=== PATIENT | female | born 1970 | race Caucasian/White ===

== ENCOUNTER 2020-10-22 20:28 | Emergency (ER) | payer OTHER, SELFPAY ==
--- NOTE | ~2020-10-22 | XR_ITS ---
EXAMINATION: XR chest 1V INDICATION: Shortness of breath and cough TECHNIQUE: PA view of the chest is obtained. COMPARISON: None available FINDINGS: The lungs are free of acute opacities. There is no pleural effusion or pneumothorax. The ca rdiomediastinal silhouette is normal. The visualized bones and soft tissues are unremarkable. IMPRESSION: 1. No acute cardiopulmonary abnormality. Reviewed, dictated and finalized at location A. [employer]ARY
[2020-10-22 21:09] VITALS: BP 128/72; PULSE 98; RESP 16; TEMP 36.2; O2SAT 97
--- NOTE | 2020-10-22 21:11 | ECG_ITS ---
Measurements Intervals [place] Rate: 77 P: 32 [place]: 142 QRS: 17 QRSD: 87 T: 55 QT: 387 QTc: 438 Interpretive Statements SINUS RHYTHM BASELINE WANDER- I, II, AVR, AVL, AVF, V6 NORMAL ECG Electronically Signed On 10-23-2020 7:14:01 [employer] by Brooks Garces D.O.
[2020-10-22 21:17] LABS: Glucose Point of Care 239 (65-105)
[2020-10-22 21:25] LABS: Basophils Percent Auto 0.6 % (0.2-1.2); Eosinophils Absolute Auto 0.1 K/mm3 (0-0.3); Hematocrit 38.1 % (37.0-47.0); Hemoglobin 13.2 g/dL (12.0-15.0); Immature Granulocyte Absolute 0.02 K/mm3 (0.00-0.031); Immature Granulocyte Percent A 0.3 % (0-0.5); Lymphocytes Percent Auto 46.9 % (18.3-44.2); Mean Corpuscular HGB Conc 34.6 g/dl (32-36); Mean Corpuscular Hemoglobin 29.3 pg (26-34); Mean Corpuscular Volume 84.7 fl (80-100); Mean Platelet Volume 10.1 fl (7.4-10.4); Monocytes Absolute Auto 0.3 K/mm3 (0.1-0.6); Monocytes Percent Auto 4.5 % (2.6-8.5); Neutrophils Percent Auto 45.7 % (45.5-73.1); Platelet Count Result 171 k/mm3 (150-375); Red Cell Distribution Width 12.5 % (11.5-14.5); White Blood Count 6.6 K/mm3 (4.5-10.0)
[2020-10-22 21:38] LABS: Anion Gap 7 mmol/L (8-16); Blood Urea Nitrogen 11 mg/dL (7-17); Calcium 9.4 mg/dL (8.4-10.2); Carbon Dioxide 31 mmol/L (22-30); Chloride 99 mmol/L (98-107); Estimated Glomerular Filt Rate > 60; Glucose 237 mg/dL (65-105); Potassium 3.8 mmol/L (3.4-5.0); Sodium 137 mmol/L (137-145)
[2020-10-23 00:01] VITALS: BP 101/66; PULSE 76; RESP 16; O2SAT 100
[2020-10-23 00:12] VITALS: PULSE 72
[2020-10-23 00:12] LABS: Add Urine Microscopic? NO; Appearance Urine Clear (Clear); Bilirubin Urine Negative (Negative); Blood Urine Negative (Negative); Color Urine Colorless (Yellow); Glucose Urine UA Negative (Negative); Ketones Urine Negative (Negative); Leukocyte Esterase Ur Negative LEU/UL (Negative); Nitrate Urine Negative (Negative); Protein Urine Negative (Negative); Specific Grav Ur 1.005 (1.001-1.035); Urobilinogen Urine Negative mg/dL (<2.0)
--- NOTE | 2020-10-23 00:58 | ED.GENADULT ---
HPI - General Adult General Chief complaint: Shortness of Breath/Dyspnea Stated complaint: elevated blood sugar, multiple complaints Time Seen by Provider: 10/22/20 23:46 History of Present Illness HPI narrative: Patient is a 50-year-old female who presents ER with a constellation of symptoms occurring over the last few days. Reports she has had cough with mild diarrhea over the last day. Has been associated with high blood sugars over the last couple days. She reports been taking medications. No fevers or chills or sweats. Cough is associated with mild chest discomfort. No pain with deep breath. Cough is nonproductive. No known sick contacts. Has not found any aggravating or alleviating factors but has not been taking any medications at home for this. Related Data Home Medications Medication Instructions Recorded Confirmed albuterol sulfate 09/08/19 albuterol sulfate INHALATION 09/08/19 clonazepam 09/08/19 ergocalciferol (vitamin D2) 09/08/19 [Vitamin D2] metformin mg 09/08/19 omeprazole 09/08/19 sertraline mg 09/08/19 Allergies Allergy/AdvReac Type Severity Reaction Status Date / Time No Known Allergies Allergy Verified 10/14/18 11:27 Review of Systems Review of Systems: All systems reviewed & are unremarkable except as noted in HPI and below Constitutional: Constitutional: Denies chills, Denies fever(s) and Denies weakness ENT: Denies nasal congestion and Denies sore throat Cardiovascular: Cardiovascular: Denies chest pain and Denies radiating jaw, neck or arm pain Respiratory: Respiratory: Reports cough, Reports dyspnea and Denies wheezing Gastrointestinal: Gastrointestinal: Reports abdominal pain, Denies constipation, Reports diarrhea, Reports nausea and Reports vomiting Genitourinary: Genitourinary: Denies nocturia and Denies dysuria [facility] Past Medical History Medical History (Updated 10/23/20 @ 01:01 by Adan Roberson MD) Asthma Diabetes mellitus Hepatic steatosis Pneumonia Surgical History Surgical History (Updated 09/08/19 @ 10:21 by Susi Abraham MD) H/O cardiac catheterization no CAD H/O hernia repair H/O lumpectomy x8, benign History of x3 History of colonoscopy History of esophagogastroduodenoscopy (EGD) History of facial surgery Multiple surgical debridements of MRSA infection of chin Social History Social History Smoking status: Former smoker Gender identity (if verbalized by the patient): Female Exam Narrative: Exam Narrative: GENERAL: Well-appearing, well-nourished, and in no acute distress. HEAD: Normocephalic, atraumatic. CHEST: Clear to auscultation. No respiratory distress. HEART: Regular rate and rhythm. Normal peripheral pulses. ABDOMEN: Soft, nontender, nondistended. EXTREMITIES: Normal range of motion. No edema. SKIN: Warm, dry, no rash. NEURO: Alert and oriented x3. PSYCH: Normal mood and affect. Course Course Emergency Course: Patient informed of results. Comforted to know that she does not have pneumonia. Discharge home. Vital Signs Vital signs: Vital Signs Temperature 97.1 F L 10/22/20 21:09 Pulse Rate 98 10/22/20 21:09 Respiratory Rate 16 10/22/20 21:09 Blood Pressure 128/72 10/22/20 21:09 Pulse Oximetry 97 10/22/20 21:09 Temperature 97.1 F L 10/22/20 21:09 Pulse Rate 76 10/23/20 00:01 Respiratory Rate 16 10/23/20 00:01 Blood Pressure 101/66 10/23/20 00:01 Pulse Oximetry 100 10/23/20 00:01 Medical Decision Making Vital Signs Vital Signs: Vital Signs Temperature 97.1 F L 10/22/20 21:09 Pulse Rate 98 10/22/20 21:09 Respiratory Rate 16 10/22/20 21:09 Blood Pressure 128/72 10/22/20 21:09 Pulse Oximetry 97 10/22/20 21:09 Temperature 97.1 F L 10/22/20 21:09 Pulse Rate 76 10/23/20 00:01 Respiratory Rate 16 10/23/20 00:01 Blood Pressure 101/66 10/23/20 00:01 Pulse Oximetry 100 03
== END 2020-10-23 01:10 | disposition home or self-care (01) ==
PROVIDERS: Emergency Provider Emergency Medicine; PCP Physician Assistant
DX: B34.9 Viral infection, unspecified (principal); J45.909 Unspecified asthma, uncomplicated; E11.9 Type 2 diabetes mellitus without complications; Z87.891 Personal history of nicotine dependence; Z86.14 Personal history of Methicillin resistant Staphylococcus aureus infection; Z79.84 Long term (current) use of oral hypoglycemic drugs
CPT/HCPCS: 36415; 71045; 80048; 81003; 82948; 85025; 93005; 99284

== ENCOUNTER 2021-06-12 16:26 | Emergency (ER) | payer OTHER, SELFPAY ==
--- NOTE | ~2021-06-12 | XR_ITS ---
EXAMINATION: XR chest 2V DATE: 06/12/2021 17:39 INDICATION: Shortness of breath TECHNIQUE: PA and lateral views of the chest are obtained. COMPARISON: 10/22/2020 FINDINGS: The lungs are free of acute opacities. There is no pleural effusion or pneumothorax. The ca rdiomediastinal silhouette is normal. There is a chronic mid thoracic compression fracture without si gnificant change. IMPRESSION: 1. No acute cardiopulmonary abnormality. Reviewed, dictated and finalized at location A.
[2021-06-12 16:54] VITALS: BP 139/76; PULSE 80; RESP 18; TEMP 36.5; O2SAT 100
--- NOTE | 2021-06-12 16:59 | ECG_ITS ---
Measurements Intervals [place] Rate: 80 P: 36 [place]: 155 QRS: 19 QRSD: 89 T: 43 QT: 384 QTc: 443 Interpretive Statements SINUS RHYTHM NORMAL ECG Electronically Signed On 06-12-2021 20:14:06 CDT by Brooks Garces D.O.
[2021-06-12 19:09] LABS: Basophils Percent Auto 0.6 % (0.2-1.2); Eosinophils Absolute Auto 0.1 K/mm3 (0-0.3); Eosinophils Percent Auto 2.8 % (0-4.4); Hematocrit 38.5 % (37.0-47.0); Hemoglobin 13.3 g/dL (12.0-15.0); Immature Granulocyte Absolute 0.01 K/mm3 (0.00-0.031); Immature Granulocyte Percent A 0.2 % (0-0.5); Lymphocytes Percent Auto 42.5 % (18.3-44.2); Mean Corpuscular HGB Conc 34.5 g/dl (32-36); Mean Corpuscular Hemoglobin 30.2 pg (26-34); Mean Corpuscular Volume 87.3 fl (80-100); Mean Platelet Volume 10.1 fl (7.4-10.4); Monocytes Absolute Auto 0.3 K/mm3 (0.1-0.6); Monocytes Percent Auto 5.5 % (2.6-8.5); Neutrophils Absolute Auto 2.3 K/mm3 (1.3-6.7); Neutrophils Percent Auto 48.4 % (45.5-73.1); Platelet Count Result 175 k/mm3 (150-375); Red Blood Count 4.41 M/mm3 (4.2-5.4); Red Cell Distribution Width 12.5 % (11.5-14.5); White Blood Count 4.7 K/mm3 (4.5-10.0)
[2021-06-12 19:26] VITALS: O2SAT 99
[2021-06-12 19:29] LABS: Anion Gap 10 mmol/L (8-16); Blood Urea Nitrogen 12 mg/dL (7-17); Calcium 10.1 mg/dL (8.4-10.2); Carbon Dioxide 28 mmol/L (22-30); Chloride 99 mmol/L (98-107); Estimated CRCL calculation 113 ml/min; Estimated Glomerular Filt Rate > 60; Glucose 366 mg/dL (65-110); Sodium 137 mmol/L (137-145)
--- NOTE | 2021-06-12 19:30 | ED.GENADULT ---
HPI - General Adult General Chief complaint: Upper Respiratory Infection Stated complaint: uri Time Seen by Provider: 06/12/21 19:22 History of Present Illness HPI narrative: Patient 51-year-old female presents the emergency department with chief complaint of cough and shortness of breath. The patient reports she has history of asthma reports that she has been follow-up having a cough that has been productive of some phlegm for over a week patient reports that her inhaler and nebulizer. Patient reports this feels similar to when she is had pneumonia or bronchitis in the past patient reports symptoms or not improved by anything nor they worsened by nothing. The patient does report that she has had subjective low-grade fevers at home. Related Data Home Medications Medication Instructions Recorded Confirmed albuterol sulfate 09/08/19 albuterol sulfate INHALATION 09/08/19 clonazepam 09/08/19 ergocalciferol (vitamin D2) 09/08/19 [Vitamin D2] metformin mg 09/08/19 omeprazole 09/08/19 sertraline mg 09/08/19 Allergies Allergy/AdvReac Type Severity Reaction Status Date / Time No Known Allergies Allergy Verified 06/12/21 19:30 Review of Systems Review of Systems: A 10 system review of systems was completed on the patient and is negative except for what is stated in the HPI. Nursing and ancillary documentation was reviewed. PMFSH Past Medical History Medical History Asthma Diabetes mellitus Hepatic steatosis Pneumonia Surgical History Surgical History H/O cardiac catheterization no CAD H/O hernia repair H/O lumpectomy x8, benign History of x3 History of colonoscopy History of esophagogastroduodenoscopy (EGD) History of facial surgery Multiple surgical debridements of MRSA infection of chin Social History Social History Smoking status: Former smoker Gender identity (if verbalized by the patient): Female Exam Narrative: GENERAL: Well-appearing, well-nourished, and in no acute distress. HEAD: Normocephalic, atraumatic. EYES: PERRLA and EOMI. ENT: Nares clear, no rhinorrhea or epistaxis. Mucous membranes moist. NECK: Supple. CHEST: Clear to auscultation. No respiratory distress. HEART: Regular rate and rhythm. No murmur heard. Normal peripheral pulses. ABDOMEN: Soft, nontender, nondistended, normal active bowel sounds. EXTREMITIES: Normal range of motion. No edema. SKIN: Warm, dry, no rash. NEURO: No focal deficits. Alert and oriented x3. PSYCH: Normal mood and affect. Course Vital Signs Vital signs: Vital Signs Temperature 36.5 C 06/12/21 16:54 Pulse Rate 80 06/12/21 16:54 Respiratory Rate 18 06/12/21 16:54 Blood Pressure 139/76 06/12/21 16:54 Pulse Oximetry 100 06/12/21 16:54 Temperature 36.5 C 06/12/21 16:54 Pulse Rate 86 06/12/21 19:31 Respiratory Rate 20 06/12/21 19:31 Blood Pressure 132/77 06/12/21 19:31 Pulse Oximetry 98 06/12/21 19:31 Medical Decision Making Vital Signs Vital Signs: Vital Signs Temperature 36.5 C 06/12/21 16:54 Pulse Rate 80 06/12/21 16:54 Respiratory Rate 18 06/12/21 16:54 Blood Pressure 139/76 06/12/21 16:54 Pulse Oximetry 100 06/12/21 16:54 Temperature 36.5 C 06/12/21 16:54 Pulse Rate 86 06/12/21 19:31 Respiratory Rate 20 06/12/21 19:31 Blood Pressure 132/77 06/12/21 19:31 Pulse Oximetry 98 06/12/21 19:31 Lab Data Result diagrams: 06/12/21 18:54 06/12/21 18:54 Labs: Lab Results 06/12/21 06/12/21 06/12/21 Range/Units 18:54 18:54 19:50 WBC 4.7 (4.5-10.0) K/mm3 RBC 4.41 (4.2-5.4) M/mm3 Hgb 13.3 (12.0-15.0) g/dL Hct 38.5 (37.0-47.0) % MCV 87.3 (80-100) fl MCH 30.2 (26-34) pg MCHC 34.5 (32-36) g/
[2021-06-12 19:31] VITALS: BP 132/77; PULSE 86; RESP 20; O2SAT 98
[2021-06-12] MEDS: methylPREDNISolone SOD SUCC 125 MG VIAL IV PUSH (20:10)
[2021-06-12] MEDS: SODIUM CHLORIDE 0.9% IV 1,000 ML 999 ML IV CONT (20:12)
[2021-06-12 20:20] LABS: NT Pro B Type Natriuretic Pept 20 pg/mL (5-100); Troponin I < 0.012 ng/mL (0.000-0.034)
[2021-06-12] MEDS: BENZONATATE 100 MG CAPSULE 200 MG PO (20:47)
[2021-06-12 21:45] VITALS: BP 141/87; PULSE 86; RESP 16; O2SAT 97
[2021-06-15 19:59] LABS: SARS-CoV-2 RNA PCR Negative
== END 2021-06-12 21:42 | disposition home or self-care (01) ==
PROVIDERS: Emergency Medicine; Emergency Provider Emergency Medicine; PCP Physician Assistant
DX: J20.8 Acute bronchitis due to other specified organisms (principal); Z20.822 Contact with and (suspected) exposure to COVID-19; J45.909 Unspecified asthma, uncomplicated; E11.9 Type 2 diabetes mellitus without complications; Z86.14 Personal history of Methicillin resistant Staphylococcus aureus infection; Z87.891 Personal history of nicotine dependence; Z79.84 Long term (current) use of oral hypoglycemic drugs
CPT/HCPCS: 36415; 71046; 80048; 83880; 84484; 85025; 87081; 87804; 87880; 93005; 96361; 96374; 99284; A9270; C9803; J2930; J7030; U0003; U0005

== ENCOUNTER 2022-05-15 13:59 | Emergency (ER) | payer OTHER, SELFPAY ==
--- NOTE | ~2022-05-15 | XR_ITS ---
XR chest 2V DATE: 05/15/2022 14:56 INDICATION: Productive cough for 2 weeks. Past smoker. TECHNIQUE: PA and lateral views COMPARISON: 06/12/2021 2 view chest FINDINGS: Chronic prominent compression fracture of midthoracic region, stable since 06/12/2021. Ther e is degenerative spurring of the thoracic and lumbar spine. There is minimal dextroscoliosis of the thoracic spine. Mild levoscoliosis of the lumbar spine. No pulmonary infiltrate or consolidation, pleural effusion or pulmonary vascular congestion or pneumo thorax. Normal heart size. No hilar or medial IMPRESSION: No active cardiopulmonary disease Reviewed, dictated and finalized at location A.
[2022-05-15 14:13] VITALS: BP 122/75; PULSE 85; RESP 16; TEMP 35.9; O2SAT 99
[2022-05-15 14:15] VITALS: BP 122/75; PULSE 85; RESP 16; TEMP 35.9; O2SAT 99
--- NOTE | 2022-05-15 14:37 | ED.URI ---
HPI - URI/Sore Throat General Chief Complaint: Upper Respiratory Infection Stated Complaint: shortness of breath, coughing, dizziness Time Seen by Provider: 05/15/22 14:37 History of Present Illness HPI Narrative: Colette Garrett is 51 yo female with a PMH of asthma, insulin, anxiety, high cholesterol, who has 2 weeks of symptoms involving last night few times due to green-yellow mucus and coughing. States that she has coughing that when she starts it is hard for her to control; she has been using her nebulizer machine, 2 weeks she is afebrile but is feeling weak Related Data Home Medications Medication Instructions Recorded Confirmed sertraline 100 mg tablet 100 mg PO DAILY 09/08/19 05/15/22 albuterol sulfate 2.5 mg/3 mL 2.5 mg continuous nebulization TID 05/15/22 05/15/22 (0.083 %) solution for nebulization albuterol sulfate 90 mcg/actuation 90 mcg inhalation TID 05/15/22 05/15/22 aerosol inhaler clonazepam 0.5 mg tablet 0.5 mg PO DAILY 05/15/22 05/15/22 ergocalciferol (vitamin D2) 1,250 1,250 mcg PO WEEKLY 05/15/22 05/15/22 mcg (50,000 unit) capsule fenofibrate micronized 134 mg 134 mg PO DAILY 05/15/22 05/15/22 capsule fluticasone propionate 50 50 mcg intranasal DAILY 05/15/22 05/15/22 mcg/actuation nasal spray,suspension hydrocodone 7.5 mg-acetaminophen 1 tablet PO DAILY 05/15/22 05/15/22 325 mg tablet insulin detemir U-100 100 unit/mL See Rx Instructions .Route .COMPLEX 05/15/22 05/15/22 (3 mL) subcutaneous pen (Levemir FlexTouch U-100 Insulin) metformin 500 mg tablet 500 mg PO DAILY 05/15/22 05/15/22 Allergies Allergy/AdvReac Type Severity Reaction Status Date / Time No Known Allergies Allergy Verified 05/15/22 14:09 Review of Systems Review of Systems: CONSTITUTIONAL: Denies fever, chills, sweats. EYES: Denies visual changes, redness, discharge. ENT: Denies rhinorrhea, congestion, sore throat, otalgia. CARDIOVASCULAR: Denies chest pain, palpitations, edema. RESPIRATORY: Has dyspnea, wheezing, has cough GASTROINTESTINAL: Denies abdominal pain, nausea, vomiting, diarrhea. GENITOURINARY: Denies dysuria, hematuria, abnormal discharge SKIN: Denies rash or itching. NEUROLOGIC: Denies numbness, or focal weakness. PSYCHIATRIC: Denies anxiety or depression. ON LICENSE OF [facility] Past Medical History Medical History Asthma Diabetes mellitus Hepatic steatosis High cholesterol Pneumonia Surgical History Surgical History H/O cardiac catheterization no CAD H/O hernia repair H/O lumpectomy x8, benign History of x3 History of colonoscopy History of esophagogastroduodenoscopy (EGD) History of facial surgery Multiple surgical debridements of MRSA infection of chin Social History Social History Smoking status: Former smoker Gender identity (if verbalized by the patient): Female Comments At time of signature, I agree with nursing past medical, surgical, social and family history. There is no relevant family history pertinent to the presenting complaint. Exam Narrative: GENERAL: This is a well-nourished, well-developed patient, in mild distress. HEAD: normocephalic, atraumatic. EYES: Sclera clear/white. Vision is grossly intact. EARS: External ears normal, auditory canals clear and without drainage, TMs normal without perforation. Hearing grossly intact. NOSE: External nose normal without nasal discharge, nares without redness, no rhinorrhea. THROAT: Mucous membranes moist, posterior pharynx erythema NECK: Neck supple, non-tender CARDIOVASCULAR: Regular rate and rhythm without murmurs, gallops, or rubs. RESPIRATORY: Diminished to auscultation. Breath sounds equal bilaterally. No wheezes, rales, or rhonchi. Coughs with deep breathing GASTROINTESTINAL: Not done SKIN: warm, intact with no suspicious lesions or mike
== END 2022-05-15 15:22 | disposition home or self-care (01) ==
PROVIDERS: Emergency Provider Nurse Practitioner; PCP Physician Assistant
DX: J45.901 Unspecified asthma with (acute) exacerbation (principal); Z87.891 Personal history of nicotine dependence; E11.9 Type 2 diabetes mellitus without complications; E78.00 Pure hypercholesterolemia, unspecified; K76.0 Fatty (change of) liver, not elsewhere classified; Z79.4 Long term (current) use of insulin; Z79.84 Long term (current) use of oral hypoglycemic drugs
CPT/HCPCS: 71046; 99213; G0463

== ENCOUNTER 2022-05-22 14:13 | Inpatient (IN) | payer OTHER, SELFPAY ==
[2022-05-22] VITALS (21 sets, daily range): BP systolic 101–126; BP diastolic 55–80; PULSE 64–84; RESP 8–28; TEMP 35.8–37; O2SAT 95–100; BMI 31.0; BMI 33.0
--- NOTE | ~2022-05-22 | MR_ITS ---
EXAMINATION: MR brain/brain stem wo con DATE: 05/23/2022 11:05 INDICATION: Confusion. TECHNIQUE: Magnetic resonance imaging (MRI) of the brain and brainstem was performed without intraven ous contrast. Sequences included sagittal and axial T1-weighted SE, axial diffusion-weighted FS SE, a xial T2*-weighted GRE, axial 3D SWAN, axial T2-weighted FLAIR, and axial T2-weighted FSE. Apparent di ffusion coefficient (ADC) maps were created. COMPARISON: Head CT dated 05/22/2022 FINDINGS: There are no areas of restricted diffusion to suggest acute infarction. No abnormal intracranial mass lesion. Tiny focus of susceptibility artifact and associated increased attenuation on prior CT at e left basal ganglia which could be due to either calcification or blood products. There are no intra parenchymal signal abnormalities seen on the other pulse sequences. The ventricles are symmetric and normal in size. There are no abnormal extra-axial fluid collections. Flow voids are seen in the cereb ral arteries on the T2-weighted sequences consistent with their expected patency. Visualized orbits a nd soft tissues are unremarkable. There are no areas of abnormal enhancement on the post contrast yi ges. IMPRESSION: 1. Tiny focus of susceptibility artifact with associated increased attenuation prior CT which could r epresent either a focus of dystrophic calcification or intraparenchymal microhemorrhage. Findings wer e discussed with Jannette Flannery, the nurse caring for the patient, at 2:40 PM. Reviewed, dictated and finalized at location A. IMPRESSION: 1. Tiny focus of susceptibility artifact with associated increased attenuation prior CT which could represent either a focus of dystrophic calcification or in traparenchymal microhemorrhage. Findings were discussed with Jannette Flannery, [facility] nurse caring for the patient, at 2:40 PM.
--- NOTE | ~2022-05-22 | CT_ITS ---
EXAMINATION: CT brain wo con DATE: 05/22/2022 15:12 INDICATION: new onset seizure . TECHNIQUE: Computed tomography (CT) of the head was performed without intravenous contrast. The mA wa s adjusted according to patient size. Iterative reconstruction technique was employed. The dose-lengt h product was 605.33 mGy-cm. COMPARISON: 02/13/2014 FINDINGS: No acute intracranial hemorrhage or extra-axial fluid collection. No hydrocephalus, mass, or herniation. No acute ischemic infarct. Unremarkable dural venous sinus attenuation. No acute osseous abnormality. The aerated spaces are clear. IMPRESSION: No acute intracranial process. Reviewed, dictated and finalized at location K.
--- NOTE | ~2022-05-22 | XR_ITS ---
EXAMINATION: XR chest 1V portable Exam Date/Time: 05/22/2022 14:40 CDT HISTORY: syncope/seizure Comparison: 05/15/2022. RESULT: Lines, tubes, and devices: None. Lungs and pleura: Low volumes with crowding. Otherwise clear.. Cardiomediastinal silhouette: Stable. Other: No acute osseous or upper abdominal finding. IMPRESSION: No acute cardiopulmonary process. Reviewed, dictated and finalized at location K.
--- NOTE | 2022-05-22 14:25 | ECG_ITS ---
Measurements Intervals [place] Rate: 68 P: 36 [place]: 129 QRS: 20 QRSD: 88 T: 37 QT: 403 QTc: 430 Interpretive Statements SINUS RHYTHM COMPARED TO ECG 06/12/2021 17:08:12 NO SIGNIFICANT CHANGES Electronically Signed On 05-23-2022 17:24:29 CDT by Francesca Baires M.D.
[2022-05-22 14:51] LABS: Basophils Percent Auto 0.5 % (0.2-1.2); Eosinophils Absolute Auto 0.1 K/mm3 (0-0.3); Eosinophils Percent Auto 0.8 % (0-4.4); Hematocrit 41.6 % (37.0-47.0); Hemoglobin 14.1 g/dL (12.0-15.0); Immature Granulocyte Absolute 0.04 K/mm3 (0.00-0.031); Immature Granulocyte Percent A 0.6 % (0-0.5); Lymphocytes Absolute Auto 2.08 K/mm3 (0.9-3.2); Lymphocytes Percent Auto 31.9 % (18.3-44.2); Mean Corpuscular HGB Conc 33.9 g/dl (32-36); Mean Corpuscular Hemoglobin 29.7 pg (26-34); Mean Corpuscular Volume 87.6 fl (80-100); Mean Platelet Volume 10.6 fl (7.4-10.4); Monocytes Absolute Auto 0.4 K/mm3 (0.1-0.6); Monocytes Percent Auto 5.7 % (2.6-8.5); Neutrophils Percent Auto 60.5 % (45.5-73.1); Platelet Count Result 171 k/mm3 (150-375); Red Blood Count 4.75 M/mm3 (4.2-5.4); Red Cell Distribution Width 12.8 % (11.5-14.5); White Blood Count 6.5 K/mm3 (4.5-10.0)
[2022-05-22 14:59] LABS: Glucose Point of Care 284 mg/dl (65-105)
[2022-05-22] MEDS: SODIUM CHLORIDE 0.9% IV 1,000 ML 999 ML IV CONT (14:59)
[2022-05-22 15:05] LABS: Prothrombin Time 12.6 Seconds (11.1-14.7)
[2022-05-22 15:05] LABS: Alanine Aminotransferase 28 U/L (6-35); Albumin Level 4.8 g/dL (3.5-5.1); Alkaline Phosphatase 60 U/L (38-126); Anion Gap 10 mmol/L (8-16); Aspartate Amino Transferase 27 U/L (14-36); Bilirubin,Total 0.5 mg/dL (0.2-1.3); Blood Urea Nitrogen 19 mg/dL (7-17); Calcium 9.4 mg/dL (8.4-10.2); Carbon Dioxide 25 mmol/L (22-30); Chloride 98 mmol/L (98-107); Estimated CRCL calculation 61 ml/min; Estimated Glomerular Filt Rate > 60; Glucose 296 mg/dL (65-110); Magnesium 1.6 mg/dL (1.6-2.3); Potassium 4.2 mmol/L (3.4-5.0); Sodium 133 mmol/L (137-145)
[2022-05-22 15:06] LABS: Partial Thromboplastin Time 22.3 SECONDS (22.3-36.8)
[2022-05-22 15:10] LABS: Appearance Urine Slightly Cloudy (Clear); Bilirubin Urine 1+ (Negative); Blood Urine Negative (Negative); Color Urine Yellow (Yellow); Glucose Urine UA 1+ mg/dL (Negative); Ketones Urine Trace mg/dL (Negative); Leukocyte Esterase Ur Negative LEU/UL (Negative); Nitrate Urine Negative (Negative); Protein Urine 1+ mg/dL (Negative); Specific Grav Ur 1.025 (1.001-1.035); Urobilinogen Urine 0.2 mg/dL (<2.0); pH Urine 5.5 (5.0-9.0)
[2022-05-22 15:16] LABS: Hyaline Casts Urine 15-19 /lpf; Mucus Urine Rare /lpf; RBC Urine 0-2 /hpf (0-2); Squamous Epithelial Cell Urine Occasional /hpf (Few)
[2022-05-22 15:17] LABS: NT Pro B Type Natriuretic Pept 32 pg/mL (5-100); Troponin I < 0.012 ng/mL (0.000-0.034)
[2022-05-22 15:22] LABS: Add Urine Microscopic? YES
[2022-05-22 15:27] LABS: Amphetamine Screen Urine Negative (Negative); Barbiturate Screen Urine Negative (Negative); Benzodiazepines Screen Urine Positive (Negative); Cannabinoid Screen Urine Negative (Negative); Cocaine Screen Urine Negative (Negative); Methadone Screen Urine Negative (Negative); Opiate Screen Urine Positive (Negative); Phencyclidine Screen Urine Negative (Negative)
[2022-05-22] MEDS: LEVETIRACETAM IVPB (16:09)
[2022-05-22] MEDS: DEXTROSE 5% IVPB (16:09)
[2022-05-22] MEDS: WATER IVPB (16:09)
[2022-05-22 18:12] LABS: Troponin I < 0.012 ng/mL (0.000-0.034)
--- NOTE | 2022-05-22 18:31 | ADMGEN ---
This patient, Colette Garrett, was admitted to [facility] Surg Room 307-01. Patient/family oriented to hospital policies and general routines including ID bracelet, bed and alarms, visiting hours, pain management, procedures, bathroom and other care routines, personal items, smoking policy, room service/diet, and visiting hours. Information on how to activate the Rapid Response Team has been discussed. Patient/Family are encouraged to report perceived risks to care and to ask questions if they do not understand what they are told or what they should do.
[2022-05-22 21:14] LABS: Glucose Point of Care 202 mg/dl (65-105)
[2022-05-22] MEDS: HYDROcodone/acetaminophen (*CRX) 7.5-325 MG TABLET 1 TAB PO (22:00)
--- NOTE | 2022-05-22 22:54 | ED.GENADULT ---
HPI - General Adult General Chief complaint: Seizure Stated complaint: ?seizure/syncope Time Seen by Provider: 05/22/22 14:25 History of Present Illness HPI narrative: This is a 52-year-old female who was found by her family unresponsive at home. The patient is altered and while she was awake and looking around she is unable to answer questions. EMS believes that she had a seizure because she was having darting eye movements and gave her 2.5 mg of IV Versed. There was no tongue biting or loss of continence. Patient has a remote history of seizures as a child but has not had them and many many years. Related Data Home Medications Medication Instructions Recorded Confirmed sertraline 100 mg tablet 100 mg PO DAILY 09/08/19 05/22/22 albuterol sulfate 2.5 mg/3 mL 2.5 mg continuous nebulization TID 05/15/22 05/22/22 (0.083 %) solution for nebulization PRN Shortness Of Breath Or Wheezing albuterol sulfate 90 mcg/actuation 90 mcg inhalation TID PRN 05/15/22 05/22/22 aerosol inhaler Shortness Of Breath Or Wheezing clonazepam 0.5 mg tablet 0.5 mg PO DAILY PRN Anxiety 05/15/22 05/22/22 ergocalciferol (vitamin D2) 1,250 1,250 mcg PO WEEKLY 05/15/22 05/22/22 mcg (50,000 unit) capsule fenofibrate micronized 134 mg 134 mg PO DAILY 05/15/22 05/22/22 capsule fluticasone propionate 50 50 mcg intranasal DAILY PRN 05/15/22 05/22/22 mcg/actuation nasal Congestion spray,suspension hydrocodone 7.5 mg-acetaminophen 1 tablet PO DAILY PRN Pain (Scale 05/15/22 05/22/22 325 mg tablet Score 7-10) insulin detemir U-100 100 unit/mL See Rx Instructions .Route .COMPLEX 05/15/22 05/22/22 (3 mL) subcutaneous pen (Levemir FlexTouch U-100 Insulin) metformin 500 mg tablet 1,000 mg PO BIDAC 05/15/22 05/22/22 azelastine 0.05 % eye drops 1 drp EACH EYE 2XD 05/22/22 05/22/22 ciprofloxacin HCl 0.3 % eye drops 1 drp EACH EYE QID 05/22/22 05/22/22 ondansetron 4 mg disintegrating 4 mg translingual 3XD PRN Nausea 05/22/22 05/22/22 tablet Allergies Allergy/AdvReac Type Severity Reaction Status Date / Time No Known Allergies Allergy Verified 05/22/22 20:35 Review of Systems Review of Systems: ROS unobtainable: Yes unobtainable due to medical condition PMFSH Past Medical History Medical History Asthma Diabetes mellitus Hepatic steatosis High cholesterol Pneumonia Surgical History Surgical History H/O cardiac catheterization no CAD H/O hernia repair H/O lumpectomy x8, benign History of x3 History of colonoscopy History of esophagogastroduodenoscopy (EGD) History of facial surgery Multiple surgical debridements of MRSA infection of chin Social History Social History Smoking status: Former smoker Tobacco type: cigarettes Second hand tobacco smoke exposure: Yes Additional smoking assessment comments: I used to smoke as a teenager. About 1-2 cigarettes on the weeekends. Alcohol intake: never Substance use: never Gender identity (if verbalized by the patient): Female Spiritual care concerns: Yes (Buddhism) Exam Narrative: APPEARANCE: Patient is lying in bed, her eyes are open she is looking around the room but she is not interacting Meaningfully with people around her. Head atraumatic. EYES: PERRLA/EOMI, 2 mm equal and reactive NOSE: Normal no drainage NECK: Supple, Trachea midline RESPIRATORY: CTAB, No increased work of breathing. CARDIOVASCULAR: S1S2 appreciated ABDOMINAL: Soft, nontender, nondistended, MUSCULOSKELETAl: No obvious deformities NEURO: Alert. Moving 4/4 extremities SKIN:: Warm, dry. Normal color PSYCHIATRIC: Normal affect Course Vital Signs Vital signs: Vital Signs Temperature 98.6 F 05/22/22 14:22 Pulse Rate 76 05/22/22 14:22 Respiratory Rate 16 05/22/22 14:22 Blood Pressure 125/72 05/22/22 14:
--- NOTE | 2022-05-22 22:59 | PM.IMHP ---
H&P: HPI History of Present Illness Date/Time: 05/22/22 22:59 Chief Complaint: altered mental status. Narrative: This is a 52-year-old female patient who was seen at the urgent care on 05/15/2022 for an upper respiratory infection and a history of asthma. The patient was placed on antibiotics and steroids. She has not been feeling well for several weeks. The patient had a history of having a seizure when she was younger but it was thought that this was due to febrile seizure. However today the patient was found to be unresponsive at home. Her mentation was altered. She was awake and looking around but she does not recall anything that happened today. She has not had any tongue biting or loss of consciousness or any incontinence. Head CT was read as nothing acute. Chest x-ray was read as nothing acute. The patient was given IV fluids, Keppra, and Rocephin. The patient is complaining of having a headache. She typically takes Vicodin at home for her back pain. She also has some depression and anxiety. Her sodium level was 133. Glucose was 296 and then 2 O2. Patient's troponin was negative x2. The patient was found to be positive for opiates and benzos. The patient had been started on Rocephin for possibility of urinary tract infection. The patient was given Ativan EN route per EMS for possibility of a seizure. The patient is being admitted to inpatient status on the date of service of 05/22/2022. Review of Systems Review of Systems: All systems reviewed & are unremarkable except as noted in HPI and below Constitutional: Constitutional: Reports as per HPI and Reports no additional constitutional complaints Eyes: Eyes: Reports as per HPI and Reports no additional eye complaints ENT: Reports system reviewed and no additional complaints, except as documented and Reports Normal hearing present Cardiovascular: Cardiovascular: Reports no additional cardiovascular complaints Respiratory: Respiratory: Reports no additional respiratory complaints and Reports no additional respiratory complaints Gastrointestinal: Gastrointestinal: Reports as per HPI and Reports no additional gastrointestinal complaints Musculoskeletal: Musculoskeletal: Reports no additional musculoskeletal complaints Integumentary/Breasts: Skin/Breast: Reports system reviewed and no additional complaints, except as docu and Reports as per HPI Neurologic: Reports system reviewed and no additional complaints, except as documented, Reports as per HPI and Reports Normal hearing present Psychiatric: Psychiatric: Reports no additional psychiatric complaints and Reports as per HPI Endocrine: Endocrine: Reports no additional endocrine complaints Hematologic/Lymphatic: Hematologic/Lymphatic: Reports no additional hematologic/lymphatic complaints Allergic/Immunologic: Allergic/Immunologic: Reports no additional allergic/immunologic complaints [facility] [place] Past Medical History Medical History (Updated 05/22/22 @ 23:06 by Kiara Gillis NP) Anxiety Asthma Diabetes mellitus Hepatic steatosis High cholesterol Insulin dependent diabetes mellitus Panic attack Pneumonia Surgical History Surgical History H/O cardiac catheterization no CAD H/O hernia repair H/O lumpectomy x8, benign History of x3 History of colonoscopy History of esophagogastroduodenoscopy (EGD) History of facial surgery Multiple surgical debridements of MRSA infection of chin Family History Family History (Updated 05/22/22 @ 23:06 by Kiara Gillis NP) Unknown No problems noted. Social History Social History (Updated 05/22/22 @ 23:07 by Kiara Gillis NP) Social History: the patient is . She is currently unemployed. She has 3 children. She denies any alcohol. She states she is disabled. No marijuana or illicit drugs. Her is the durable power litigation attorney for healthcare. Code status full c
[2022-05-23] VITALS (9 sets, daily range): BP systolic 103–124; BP diastolic 62–69; PULSE 64–84; RESP 18–20; TEMP 36–37.1; O2SAT 95–97
[2022-05-23 03:53] LABS: Glucose Point of Care 177 mg/dl (65-105)
[2022-05-23 05:55] LABS: Basophils Percent Auto 0.4 % (0.2-1.2); Eosinophils Absolute Auto 0.1 K/mm3 (0-0.3); Eosinophils Percent Auto 2.5 % (0-4.4); Hematocrit 35.8 % (37.0-47.0); Hemoglobin 12.3 g/dL (12.0-15.0); Immature Granulocyte Absolute 0.03 K/mm3 (0.00-0.031); Immature Granulocyte Percent A 0.6 % (0-0.5); Lymphocytes Absolute Auto 2.35 K/mm3 (0.9-3.2); Lymphocytes Percent Auto 49.1 % (18.3-44.2); Mean Corpuscular HGB Conc 34.4 g/dl (32-36); Mean Corpuscular Hemoglobin 29.5 pg (26-34); Mean Corpuscular Volume 85.9 fl (80-100); Mean Platelet Volume 10.9 fl (7.4-10.4); Monocytes Absolute Auto 0.2 K/mm3 (0.1-0.6); Monocytes Percent Auto 4.2 % (2.6-8.5); Neutrophils Absolute Auto 2.1 K/mm3 (1.3-6.7); Neutrophils Percent Auto 43.2 % (45.5-73.1); Platelet Count Result 157 k/mm3 (150-375); Red Blood Count 4.17 M/mm3 (4.2-5.4); Red Cell Distribution Width 12.8 % (11.5-14.5); White Blood Count 4.8 K/mm3 (4.5-10.0)
[2022-05-23 05:57] LABS: Lactic Acid Reflex 0.9 mmol/L (0.7-2.0)
[2022-05-23 06:28] LABS: Alanine Aminotransferase 27 U/L (6-35); Alkaline Phosphatase 40 U/L (38-126); Anion Gap 6 mmol/L (8-16); Aspartate Amino Transferase 26 U/L (14-36); Bilirubin,Total 0.3 mg/dL (0.2-1.3); Blood Urea Nitrogen 14 mg/dL (7-17); Calcium 8.9 mg/dL (8.4-10.2); Carbon Dioxide 26 mmol/L (22-30); Chloride 106 mmol/L (98-107); Estimated CRCL calculation 88 ml/min; Estimated Glomerular Filt Rate > 60; Glucose 183 mg/dL (65-110); Magnesium 1.7 mg/dL (1.6-2.3); Potassium 3.7 mmol/L (3.4-5.0); Sodium 138 mmol/L (137-145)
[2022-05-23 07:51] LABS: Glucose Point of Care 198 mg/dl (65-105)
[2022-05-23] MEDS: levETIRAcetam 500MG/NACL 100ML 500 MG/100 ML BAG 400 MG IVPB ×2 (07:55→20:49)
[2022-05-23] MEDS: FENOFIBRATE NANOCRYSTALLIZED 145 MG TABLET PO (07:55)
[2022-05-23] MEDS: SERTRALINE HCL 50 MG TABLET 100 MG PO (07:55)
[2022-05-23] MEDS: CIPROFLOXACIN HCL 0.3% OP SOLN 2.5 ML BTL 1 DROP EACH EYE ×4 (07:55→20:50)
[2022-05-23] MEDS: INSULIN GLARGINE (*BKC) 100 UNITS/ML 15 UNITS SUB-Q (08:25)
--- NOTE | 2022-05-23 09:13 | WPDNEURCNPN ---
Assessment and Plan Assessment and plan (1) Seizure-like activity: Code(s): R56.9 - Unspecified convulsions Status: Acute (2) Acute alteration in mental status: Code(s): R41.82 - Altered mental status, unspecified Status: Acute (3) UTI (urinary tract infection): Code(s): N39.0 - Urinary tract infection, site not specified Status: Acute Plan Ms. Garrett is a 52 year old female with a history of seizures during childhood who was brought in after being found down, unresponsive. Had some darting eye movements which raised concern for seizure. Work-up revealing for possible UTI. - Recommend MRI brain w/o contrast and routine EEG Consult date: 05/23/22 Time Seen: 09:13 Reason for consult: Seizure like activity HPI: Colette Garrett is a 52 year old female with a history of anxiety, depression, and remote history of seizures (?febrile seizures) who presented after being found unresponsive at home by her family. Patient had been feeling unwell for the past few weeks. She has no recollection of the events of yesterday. When she was found down, EMS was called. They noted darting eye movements, which was concerning for seizure so she was given a dose of versed. There are no reports of abnormal movements of the extremities, tongue biting or incontinence. On arrival to the ED, she was still quite altered. UA was suspicious for UTI. UDS was positive for opiates (on narco) and benzo (received versed per EMS). She was given a loading dose of Keppra 4.5g and started on Rocephin. Patient reports feeling much better today. She still has no recollection of what happened yesterday. She was not able to provide much detail about the seizures she had during childhood, but does report that she was on anti-seizure medications. Review of Systems Constitutional: Constitutional: Reports chills Eyes: Eyes: Reports blurry vision ENT: Reports system reviewed and no additional complaints, except as documented and Reports Normal hearing present Cardiovascular: Cardiovascular: Reports no additional cardiovascular complaints Respiratory: Respiratory: Reports dyspnea on exertion Gastrointestinal: Gastrointestinal: Reports constipation, Reports diarrhea and Reports vomiting Genitourinary: Genitourinary: Reports no additional female genitourinary complaints Musculoskeletal: Musculoskeletal: Reports arthralgias Integumentary/Breasts: Skin/Breast: Reports pruritus Neurologic: Reports as per HPI Psychiatric: Psychiatric: Reports no additional psychiatric complaints PMFSH Past Medical History Medical History Anxiety Asthma Diabetes mellitus Hepatic steatosis High cholesterol Insulin dependent diabetes mellitus Panic attack Pneumonia Surgical History Surgical History H/O cardiac catheterization no CAD H/O hernia repair H/O lumpectomy x8, benign History of x3 History of colonoscopy History of esophagogastroduodenoscopy (EGD) History of facial surgery Multiple surgical debridements of MRSA infection of chin Family History Family History Unknown No problems noted. Social History Social History Social History: the patient is . She is currently unemployed. She has 3 children. She denies any alcohol. She states she is disabled. No marijuana or illicit drugs. Her is the durable power criminal attorney for healthcare. Code status full code Smoking status: Former smoker Tobacco type: cigarettes Second hand tobacco smoke exposure: Yes Additional smoking assessment comments: I used to smoke as a teenager. About 1-2 cigarettes on the weeekends. Alcohol intake: never Substance use: never Gender identity (if verbalized by the patient): Female Spiritual care conc
[2022-05-23 11:34] LABS: Glucose Point of Care 226 mg/dl (65-105)
[2022-05-23] MEDS: INSULIN ASPART (*BKC) 100 UNITS/ML SUB-Q (12:04)
[2022-05-23] MEDS: HYDROcodone/acetaminophen (*CRX) 7.5-325 MG TABLET 1 TAB PO (12:12)
--- NOTE | 2022-05-23 14:00 | PM.IMPN ---
Progress Note: A&P Assessment and Plan (1) New onset seizure: Code(s): R56.9 - Unspecified convulsions Status: Acute Assessment and Plan: - Known to have a seizure as child thought to be due to a fever - Continue Keppra - neurology has been consulted. - EEG ordered. - Brain MRI shows possible microabrasion or calcification - Echo ordered. - Seizure precautions - IV Ativan for breakthrough seizure (2) Anxiety: Code(s): F41.9 - Anxiety disorder, unspecified Status: Acute Assessment and Plan: - Continue clonazepam at home (3) Panic attack: Code(s): F41.0 - Panic disorder [episodic paroxysmal anxiety] Status: Acute Assessment and Plan: -Continue clonazepam at home. -continue with sertraline (4) Insulin dependent diabetes mellitus: Status: Acute Assessment and Plan: -continue with long-acting insulin. -hold metformin -Sliding scale insulin -Accu-Cheks AC and HS -Hypoglycemia protocol -trend glucose -adjust therapy as indicated (5) Abnormal urinalysis: Code(s): R82.90 - Unspecified abnormal findings in urine Status: Acute Assessment and Plan: - UA 10-15 wbc's no nitrate or leukocyte esterase - urine culture pending - Rocephin in the emergency room - hold on antibiotics at this time - tailor to culture results (6) Acute metabolic encephalopathy: Code(s): G93.41 - Metabolic encephalopathy Status: Acute Assessment and Plan: - Could be related to medicine induced as she takes many mind altering medication, seizures, TIA, CVA - Head CT is no acute intracranial process - Keppra started - Urine does not appear to be infectious - Trend labs Time Spent With Patient Time with patient: Greater than 35 minutes Subjective Date/time seen: 05/23/22 14:00 Interval history: 05/23/22 1400 Patient stated that she feels like she is still in a fog. Don't feel like her memory is any better. She also stated that she was at first having a hard time with recognizing objects. She does state that over all she is doing a lot better. She denies any chest pain, shortness of breath, nausea, vomiting, diarrhea, constipation. 05/22/22? 22:59 ? This is a 52-year-old female patient who was seen at the urgent care on 05/15/2022 for an upper respiratory infection and a history of asthma.? The patient was placed on antibiotics and steroids.? She has not been feeling well for several weeks.? The patient had a history of having a seizure when she was younger but it was thought that this was due to febrile seizure.? However today the patient was found to be unresponsive at home.? Her mentation was altered.? She was awake and looking around but she does not recall anything that happened today.? She has not had? any tongue biting or loss of consciousness or any incontinence.? Head CT was read as nothing acute.? Chest x-ray was read as nothing acute.? The patient was given IV fluids,? Keppra, and Rocephin.? The patient is complaining of having a headache.? She typically takes Vicodin at home for her back pain.? She also has some depression and anxiety.? Her sodium level was 133.? Glucose was 296 and then 2 O2.? Patient's troponin was negative x2.? The patient was found to be positive for opiates and benzos.? The patient had been started on Rocephin for possibility of urinary tract infection.? The patient was given Ativan EN route per EMS for possibility of a seizure.? The patient is being admitted to inpatient status on the date of service of 05/22/2022. Review of Systems Review of Systems: All systems reviewed & are unremarkable except as noted in HPI and below Exam Const: General: cooperative, healthy appearing, comfortable, no acute distress, well developed, alert, awake and Physically active Nutritional Appearance: average body habitus, well nourished and overweight Rigoberto
[2022-05-23 16:36] LABS: Glucose Point of Care 191 mg/dl (65-105)
[2022-05-23 21:20] LABS: Glucose Point of Care 254 mg/dl (65-105)
[2022-05-24] VITALS (8 sets, daily range): BP systolic 113–140; BP diastolic 59–75; PULSE 66–92; RESP 18–20; TEMP 36.3–36.9; O2SAT 93–95
--- NOTE | 2022-05-24 | ECHO_ITS ---
Patient Info Name: Colette Garrett Age: 52 years : 1970 Gender: Female Ht: 61 in Wt: 175 lbs BSA: 1.88 m2 HR: 78 bpm BP: 113 / 59 mmHg Heart Rhythm: Sinus Rhythm Technical Quality: Fair Exam Date: 05/24/2022 12:48 PM Exam Location: [facility] Pulmonary Exam Room: 307 Patient Status: Inpatient Admit Date: 05/23/2022 Staff Ordering Physician: Kiara Gillis NP Cafe Helper: Mary Linares RDCS Attending Provider: Sandy Lopez PA-C Referring Physician: Carlin RASMUSSEN; Exam Type: CA echo doppler w bubble study Study Info Indications - CONFUSED Complete two-dimensional, color flow and Doppler transthoracic echocardiogram is performed with agitated saline. Contrast/Agitated Saline Contrast/Ag. Saline: Agitated Saline Amount: 20.00 ml Existing IV Access: Yes IV Access Condition: patent with no signs of infiltration Summary 1. Left ventricular chamber dimension is normal. 2. Left ventricular systolic function is normal, estimated at 60-65%. 3. There is no increased left ventricular wall thickness. 4. The left ventricular diastolic function is grade I diastolic dysfunction. 5. No evidence for [id number] shunt with injection of agitated saline with or without Valsalva. 6. There is no aortic valve stenosis. 7. There is trace mitral valve regurgitation. 8. There is trace tricuspid valve regurgitation. 9. No pulmonary hypertension, estimated pulmonary arterial systolic pressure is 27 mmHg. Left Ventricle Left ventricular chamber dimension is normal. Left ventricular systolic function is normal, estimated at 60-65%. There is no increased left ventricular wall thickness. The left ventricular diastolic function is grade I diastolic dysfunction. Right Ventricle Right ventricular chamber dimension is normal. Right ventricular systolic function is normal. Left Atria Left atrial chamber dimension is normal. Right Atria Right atrial chamber dimension is normal. Atrial Septum No evidence for [id number] shunt with injection of agitated saline with or without Valsalva. Aortic Valve The aortic valve is not well visualized. There is no aortic valve stenosis. There is no aortic valve regurgitation. Pulmonic Valve The pulmonic valve is not well visualized. Mitral Valve The mitral valve has thickened leaflets. There is trace mitral valve regurgitation. The mitral valve annulus is mildly calcified. Tricuspid Valve The tricuspid valve leaflets are normal. There is trace tricuspid valve regurgitation. No pulmonary hypertension, estimated pulmonary arterial systolic pressure is 27 mmHg. Pericardium/Pleural The pericardium appears normal. There is trivial pericardial effusion. Inferior Vena Cava Normal inferior vena cava with >50% collapse upon inspiration consistent with normal right atrial pressure, 5 mmHg. Aorta The aortic root size at the sinus of Valsalva is normal. Left Ventricular Outflow Tract Name Value Normal LVOT 2D LVOT Diameter 2.0 cm LVOT Doppler LVOT Peak Gradient 4 mmHg
[2022-05-24 06:35] LABS: Basophils Percent Auto 0.3 % (0.2-1.2); Eosinophils Absolute Auto 0.1 K/mm3 (0-0.3); Eosinophils Percent Auto 1.3 % (0-4.4); Hematocrit 37.8 % (37.0-47.0); Hemoglobin 13.1 g/dL (12.0-15.0); Immature Granulocyte Absolute 0.02 K/mm3 (0.00-0.031); Immature Granulocyte Percent A 0.3 % (0-0.5); Lymphocytes Absolute Auto 1.95 K/mm3 (0.9-3.2); Lymphocytes Percent Auto 30.8 % (18.3-44.2); Mean Corpuscular HGB Conc 34.7 g/dl (32-36); Mean Corpuscular Hemoglobin 29.9 pg (26-34); Mean Corpuscular Volume 86.3 fl (80-100); Mean Platelet Volume 10.6 fl (7.4-10.4); Monocytes Absolute Auto 0.3 K/mm3 (0.1-0.6); Monocytes Percent Auto 4.3 % (2.6-8.5); Platelet Count Result 163 k/mm3 (150-375); Red Blood Count 4.38 M/mm3 (4.2-5.4); Red Cell Distribution Width 12.6 % (11.5-14.5); White Blood Count 6.3 K/mm3 (4.5-10.0)
[2022-05-24 07:01] LABS: Alanine Aminotransferase 26 U/L (6-35); Albumin Level 4.3 g/dL (3.5-5.1); Alkaline Phosphatase 38 U/L (38-126); Anion Gap 9 mmol/L (8-16); Aspartate Amino Transferase 23 U/L (14-36); Bilirubin,Total 0.5 mg/dL (0.2-1.3); Blood Urea Nitrogen 10 mg/dL (7-17); Calcium 8.9 mg/dL (8.4-10.2); Carbon Dioxide 24 mmol/L (22-30); Chloride 106 mmol/L (98-107); Estimated CRCL calculation 88 ml/min; Estimated Glomerular Filt Rate > 60; Glucose 210 mg/dL (65-110); Magnesium 1.7 mg/dL (1.6-2.3); Potassium 3.8 mmol/L (3.4-5.0); Sodium 139 mmol/L (137-145)
[2022-05-24 08:04] LABS: Glucose Point of Care 204 mg/dl (65-105)
[2022-05-24] MEDS: FENOFIBRATE NANOCRYSTALLIZED 145 MG TABLET PO (09:08)
[2022-05-24] MEDS: CIPROFLOXACIN HCL 0.3% OP SOLN 2.5 ML BTL 1 DROP EACH EYE ×4 (09:08→21:44)
[2022-05-24] MEDS: BENZONATATE 100 MG CAPSULE 200 MG PO ×2 (09:08→21:44)
[2022-05-24] MEDS: SERTRALINE HCL 50 MG TABLET 100 MG PO (09:08)
[2022-05-24] MEDS: levETIRAcetam 500MG/NACL 100ML 500 MG/100 ML BAG 400 MG IVPB ×2 (09:09→21:45)
[2022-05-24] MEDS: INSULIN ASPART (*BKC) 100 UNITS/ML SUB-Q ×3 (09:15→16:47)
[2022-05-24] MEDS: INSULIN GLARGINE (*BKC) 100 UNITS/ML 15 UNITS SUB-Q (09:17)
[2022-05-24] MEDS: HYDROcodone/acetaminophen (*CRX) 7.5-325 MG TABLET 1 TAB PO (09:17)
[2022-05-24 11:45] LABS: Glucose Point of Care 270 mg/dl (65-105)
--- NOTE | 2022-05-24 12:59 | PM.IMPN ---
Progress Note: A&P Assessment and Plan (1) New onset seizure: Code(s): R56.9 - Unspecified convulsions Status: Acute Assessment and Plan: Patient with history of childhood seizures of unknown etiology no longer on antiepileptic medications who was found unresponsive by her granddaughter on home and upon EMS arrival was noted to have darting eye movements concerning for seizure Head CT on admission showed no acute findings She was given loading dose of IV Keppra and is continued on IV Keppra at this time IV antibiotic [place] as needed for breakthrough seizure Brain MRI showed tiny focus of susceptibility artifact with associated increased attenuation which could represent either a focus of dystrophic calcification or intraparenchymal monitor hemorrhage. Appreciate neurology consultation. Will await further recommendations regarding MRI EEG is pending Echocardiogram pending Seizure precautions in place (2) Acute metabolic encephalopathy: Code(s): G93.41 - Metabolic encephalopathy Status: Acute Assessment and Plan: Patient confused on presentation Likely due to postictal state Head CT with no acute finding Urine culture negative Plan as above (3) Anxiety: Code(s): F41.9 - Anxiety disorder, unspecified Status: Acute Assessment and Plan: No acute issues. Continue home sertraline 100 mg daily and clonazepam and 0.5 mg as needed once per day (4) Insulin dependent diabetes mellitus: Status: Acute Assessment and Plan: A1c is 10.0. Blood sugars elevated above target Home regimen consists of metformin 1000 mg daily with Levemir 15 units qAM Continue Accu-Cheks, moderate dose sliding scale insulin, and hypoglycemic protocol Lantus 15 units qAM Add 5 units NovoLog scheduled with meals Home metformin on hold Monitor glucose trends and adjust insulin regimen as needed (5) Abnormal urinalysis: Code(s): R82.90 - Unspecified abnormal findings in urine Status: Acute Assessment and Plan: UA slightly abnormal on presentation however urine culture is negative. Patient is asymptomatic. Antibiotics discontinued. Subjective Date/time seen: 05/24/22 12:59 Interval history: Date of service: 05/24/2022 Colette Garrett is a 52-year-old female with a history of diabetes mellitus, asthma, hyperlipidemia, and anxiety who is seen in follow-up for possible seizure. Patient states she was found unresponsive in her home a little groggy and confused today. The patient does seem to be a bit of a poor historian. She endorses a headache. She denies speech changes. She denies visual changes but does admit that she has been having some issues with vision in her right eye for a couple of weeks and is being managed by his optometry for this. Denies dysphagia. She does endorse a mild cough. No chest pain. She states she simply feels off.? Review of Systems Review of Systems: All systems reviewed & are unremarkable except as noted in HPI and below Exam Narrative: General: Well-nourished, well-appearing 52-year-old female, sitting up in bed, comfortable, NARD Neuro: awake, alert and oriented x4, speech clear, CN II-XII intact, strength 5/5 throughout, sensation intact, no pronator drift, bilateral puzzle assembler strength equal, able to perform rapid alternating movements HEENMT: normocephalic, atraumatic, EOMI, sclerae anicteric Respiratory: clear to auscultation bilaterally, nonlabored breathing Cardio: regular rate, regular rhythm with S1-S2 Abdomen: nondistended, normoactive bowel sounds, soft, nontender to palpation Extremities: no edema, erythema, or tenderness to palpation Skin: no rashes or lesions, warm and dry Psych: appropriate mood, slightly odd affect, judgment and insight intact Objective Data Vital Signs Vital Signs: Vital Signs - 24 hr 05/23/22 14:00 05/23/22 16:00 05/23/22 20:00 Temperature 98.7 F Pul
[2022-05-24 16:36] LABS: Glucose Point of Care 156 mg/dl (65-105)
[2022-05-24] MEDS: clonazePAM (*CRX) 0.5 MG TABLET PO (16:47)
[2022-05-24 21:27] LABS: Glucose Point of Care 188 mg/dl (65-105)
[2022-05-25 04:53] VITALS: BP 131/72; PULSE 67; RESP 20; TEMP 36.8; O2SAT 93
[2022-05-25 06:12] LABS: Hematocrit 41.1 % (37.0-47.0); Hemoglobin 13.9 g/dL (12.0-15.0); Mean Corpuscular HGB Conc 33.8 g/dl (32-36); Mean Corpuscular Hemoglobin 29.8 pg (26-34); Mean Corpuscular Volume 88.2 fl (80-100); Mean Platelet Volume 10.6 fl (7.4-10.4); Platelet Count Result 165 k/mm3 (150-375); Red Blood Count 4.66 M/mm3 (4.2-5.4); Red Cell Distribution Width 12.8 % (11.5-14.5); White Blood Count 5.5 K/mm3 (4.5-10.0)
[2022-05-25 06:34] LABS: Anion Gap 10 mmol/L (8-16); Blood Urea Nitrogen 10 mg/dL (7-17); Calcium 9.5 mg/dL (8.4-10.2); Carbon Dioxide 25 mmol/L (22-30); Chloride 102 mmol/L (98-107); Estimated CRCL calculation 88 ml/min; Estimated Glomerular Filt Rate > 60; Glucose 188 mg/dL (65-110); Potassium 3.5 mmol/L (3.4-5.0); Sodium 137 mmol/L (137-145)
[2022-05-25 07:47] LABS: Glucose Point of Care 192 mg/dl (65-105)
[2022-05-25 08:00] VITALS: PULSE 75
[2022-05-25] MEDS: SERTRALINE HCL 50 MG TABLET 100 MG PO (08:19)
[2022-05-25] MEDS: FENOFIBRATE NANOCRYSTALLIZED 145 MG TABLET PO (08:19)
[2022-05-25] MEDS: CIPROFLOXACIN HCL 0.3% OP SOLN 2.5 ML BTL 1 DROP EACH EYE ×4 (08:19→21:36)
[2022-05-25] MEDS: INSULIN ASPART (*BKC) 100 UNITS/ML SUB-Q ×4 (08:20→16:43)
[2022-05-25] MEDS: INSULIN GLARGINE (*BKC) 100 UNITS/ML 15 UNITS SUB-Q (08:21)
[2022-05-25] MEDS: levETIRAcetam 500MG/NACL 100ML 500 MG/100 ML BAG 400 MG IVPB (08:25)
--- NOTE | 2022-05-25 11:01 | WPDNEUROLOGY ---
Neurology EEG Report General Information Date of Study: 05/24/22 TEST eeg DIAGNOSIS possible seizures CONDITION OF RECORDING awake drowsy and sleep EEG NUMBER [id number] CLINICAL HISTORY patient reports she loss consciousness yesterday. Does not remember anything leading up to loss of consciousness. EEG DESCRIPTION Basic resting occipital frequency consists of low-voltage 8 to 10 hertz per 2nd alpha posteriorly admixed with low-voltage 15 to 18 hertz per 2nd beta intermittently. Low-voltage beta activity seen diffusely admixed with waxing and waning posterior alpha rhythm during drowsiness. Bilateral symmetrical sleep activity seen during sleep. Hyperventilation not done. Photic stimulation not done. Non paroxysmal. Nonfocal. Nonlateralizing. IMPRESSION No significant abnormalities noted
[2022-05-25 11:33] LABS: Glucose Point of Care 306 mg/dl (65-105)
[2022-05-25 12:00] VITALS: PULSE 89
--- NOTE | 2022-05-25 13:03 | PM.IMPN ---
Progress Note: A&P Assessment and Plan (1) New onset seizure: Code(s): R56.9 - Unspecified convulsions Status: Acute Assessment and Plan: Patient with history of childhood seizures of unknown etiology no longer on antiepileptic medications who was found unresponsive by her granddaughter on home and upon EMS arrival was noted to have darting eye movements concerning for seizure Head CT on admission showed no acute findings She was given loading dose of IV Keppra and has been maintained on IV Keppra 400 mg b.i.d.. At this time will transition to p.o. Keppra 500 mg b.i.d. per neurology recommendations IV Ativan as needed for breakthrough seizure Brain MRI showed tiny focus of susceptibility artifact with associated increased attenuation which could represent either a focus of dystrophic calcification or intraparenchymal monitor hemorrhage. Appreciate neurology consultation. Will await further recommendations regarding MRI EEG unremarkable Echocardiogram unremarkable Seizure precautions in place (2) Acute metabolic encephalopathy: Code(s): G93.41 - Metabolic encephalopathy Status: Acute Assessment and Plan: Resolved. Patient confused on presentation Likely due to postictal state Head CT with no acute finding Urine culture negative Plan as above (3) Anxiety: Code(s): F41.9 - Anxiety disorder, unspecified Status: Acute Assessment and Plan: No acute issues. Continue home sertraline 100 mg daily and clonazepam and 0.5 mg as needed once per day (4) Insulin dependent diabetes mellitus: Status: Acute Assessment and Plan: A1c is 10.0. Blood sugars elevated above target Home regimen consists of metformin 1000 mg daily with Levemir 15 units qAM Continue Accu-Cheks, moderate dose sliding scale insulin, and hypoglycemic protocol Lantus 15 units qAM Add 5 units NovoLog scheduled with meals Home metformin on hold Monitor glucose trends and adjust insulin regimen as needed (5) Abnormal urinalysis: Code(s): R82.90 - Unspecified abnormal findings in urine Status: Acute Assessment and Plan: UA slightly abnormal on presentation however urine culture is negative. Patient is asymptomatic. Antibiotics discontinued. Subjective Date/time seen: 05/25/22 13:03 Interval history: Date of service: Colette Garrett is a 52-year-old female with a history of diabetes mellitus, asthma, hyperlipidemia, and anxiety who is seen in follow-up for possible seizure. She states she is feeling back to her normal self today. Her aunt is at the bedside and agrees that she is now back to her baseline.She feels a little weak from lying in bed for a while but is able to get around to the bathroom. Encouraged increased ambulation. Review of Systems Review of Systems: All systems reviewed & are unremarkable except as noted in HPI and below Exam Narrative: General: Well-nourished, well-appearing 52-year-old female, sitting up in bed, comfortable, NARD Neuro: awake, alert and oriented x4, speech clear, no focal neuro deficits HEENMT: normocephalic, atraumatic, EOMI, sclerae anicteric Respiratory: clear to auscultation bilaterally, nonlabored breathing Cardio: regular rate, regular rhythm with S1-S2 Abdomen: nondistended, normoactive bowel sounds, soft, nontender to palpation Extremities: no edema, erythema, or tenderness to palpation Skin: no rashes or lesions, warm and dry Psych: appropriate mood and affect, judgment and insight intact Objective Data Vital Signs Vital Signs: Vital Signs - 24 hr 05/24/22 14:00 05/24/22 16:00 05/24/22 20:59 Temperature 97.4 F L 98.5 F Pulse Rate 80 92 84 Respiratory Rate 18 20 Blood Pressure 117/63 140/75 Pulse Oximetry 95 95 Oxygen Delivery 05/25/22 04:53 05/25/22 08:00 05/25/22 08:00 Temperature 98.3 F Pulse Rate 67 75 Respiratory Rate 20 Blood Pressure 131
[2022-05-25 13:53] VITALS: BP 125/75; PULSE 79; RESP 16; TEMP 35.7; O2SAT 97
[2022-05-25 16:00] VITALS: PULSE 75
[2022-05-25 16:34] LABS: Glucose Point of Care 105 mg/dl (65-105)
[2022-05-25] MEDS: clonazePAM (*CRX) 0.5 MG TABLET PO (18:02)
[2022-05-25] MEDS: levETIRAcetam 500 MG TABLET PO (21:36)
[2022-05-25 21:46] VITALS: BP 117/62; PULSE 70; RESP 16; TEMP 36.1; O2SAT 99
[2022-05-26] VITALS (7 sets, daily range): BP systolic 107–129; BP diastolic 65–74; PULSE 68–87; RESP 18; TEMP 35.9–36.7; O2SAT 99–100
[2022-05-26 07:39] LABS: Glucose Point of Care 227 mg/dl (65-105)
[2022-05-26] MEDS: INSULIN ASPART (*BKC) 100 UNITS/ML SUB-Q ×3 (08:35→11:38)
[2022-05-26] MEDS: CIPROFLOXACIN HCL 0.3% OP SOLN 2.5 ML BTL 1 DROP EACH EYE ×4 (08:37→20:29)
[2022-05-26] MEDS: FENOFIBRATE NANOCRYSTALLIZED 145 MG TABLET PO (08:38)
[2022-05-26] MEDS: levETIRAcetam 500 MG TABLET PO ×2 (08:38→20:28)
[2022-05-26] MEDS: SERTRALINE HCL 50 MG TABLET 100 MG PO (08:38)
[2022-05-26] MEDS: INSULIN GLARGINE (*BKC) 100 UNITS/ML 15 UNITS SUB-Q (08:40)
[2022-05-26] MEDS: clonazePAM (*CRX) 0.5 MG TABLET PO ×2 (09:59→20:28)
--- NOTE | 2022-05-26 10:14 | PM.IMPN ---
Progress Note: A&P Assessment and Plan (1) New onset seizure: Code(s): R56.9 - Unspecified convulsions Status: Acute Assessment and Plan: Patient with history of childhood seizures of unknown etiology no longer on antiepileptic medications who was found unresponsive by her granddaughter on home and upon EMS arrival was noted to have darting eye movements concerning for seizure Head CT on admission showed no acute findings She was given loading dose of IV Keppra and has been maintained on IV Keppra 400 mg b.i.d. 05/25 switched to p.o. Keppra 500 mg b.i.d. per neurology recommendations IV Ativan as needed for breakthrough seizure EEG unremarkable Echocardiogram unremarkable Seizure precautions in place Appreciate neurology consultation (2) Abnormal brain MRI: Code(s): R90.89 - Other abnormal findings on diagnostic imaging of central nervous system Status: Acute Assessment and Plan: Brain MRI showed tiny focus of susceptibility artifact with associated increased attenuation which could represent either a focus of dystrophic calcification or intraparenchymal microhemorrhage. Appreciate neurology consultation. Will await further recommendations regarding MRI. Called neurologist x2 for recommendations, awaiting input. States will see pt today. (3) Acute metabolic encephalopathy: Code(s): G93.41 - Metabolic encephalopathy Status: Acute Assessment and Plan: Patient confused on presentation and returned to baseline. Today appears confused again and endorses strange behavior. Not able to answer orientation questions appropriately due to acute anxiety. Likely due to postictal state Head CT with no acute finding. Brain MRI as above Spoke with neurologist regarding need for imaging such as repeat head CT. Neurology to evaluate pt with recommendations forthcoming. Urine culture negative TSH normal. Check B12, folate, ammonia Plan as above (4) Anxiety: Code(s): F41.9 - Anxiety disorder, unspecified Status: Acute Assessment and Plan: Patient acutely anxious today Given dose of clonazepam due to symptoms Continue home sertraline 100 mg daily and clonazepam 0.5 mg as needed. Home meds indicate pt takes once daily prn, will increase to BID prn. (5) Insulin dependent diabetes mellitus: Status: Acute Assessment and Plan: A1c is 10.0. Blood sugars elevated above target Home regimen consists of metformin 1000 mg daily with Levemir 15 units qAM Continue Accu-Cheks, moderate dose sliding scale insulin, and hypoglycemic protocol Increase Lantus to 17 units qAM 6 units NovoLog scheduled with meals Home metformin on hold Monitor glucose trends and adjust insulin regimen as needed Subjective Date/time seen: 05/26/22 10:14 Interval history: Date of service: 05/26/2022 Colette Garrett is a 52-year-old female with a history of diabetes mellitus, asthma, hyperlipidemia, and anxiety who is seen in follow-up for possible seizure. She states she is not doing well today. She complained of visual floaters and felt lightheaded and dizzy. She also stated that she was acting confused. she gave the example that she had to go to the bathroom but when someone came in to ask her if she wanted to get up to go to the bathroom she said no. She was very confused with herself and is unsure why she said this. She repeatedly said I do not like it. She had difficulty participating in neurologic exam and when I asked her her name she only gave her 1st name. When I asked for her last name, she stated I have to know this but did not ever state her last name. She then became very anxious and tearful. She stated I think I am having a panic attack. Encourage deep breathing and this did help to calm her, however she remained very tearful. Review of Systems Review of Systems: All systems reviewed & are unremarkable except as noted in HPI and belo
--- NOTE | 2022-05-26 10:30 | PC.NURSE ---
Patient was crying and yelling for her kids. Kept stating her dog is . unable to comfort. and Aunt at bedside.Patient would not open her eyes. Patient stated she see floaters and had a headache.
[2022-05-26 11:11] LABS: Ammonia 22 umol/L (9-30)
[2022-05-26 11:21] LABS: Glucose Point of Care 298 mg/dl (65-105)
[2022-05-26] MEDS: INSULIN ASPART (*BKC) 100 UNITS/ML 6 UNITS SUB-Q ×2 (11:38→17:05)
--- NOTE | 2022-05-26 13:58 | WPDNEUROPN ---
Subjective Date/time seen: 05/26/22 13:58 Interval history: 52 years old lady has been admitted to the hospital with the ongoing diagnosis of 1. Seizure disorder with change in the mental status and urinary tract infection additionally history of anxiety with depression as well EEG was obtained which does not reveal any active seizure like activity and patient has been started on Keppra 500 mg p.o. b.i.d. with the diagnosis of seizure disorder otherwise examination remains unchanged Objective Data Vital Signs Vital Signs: Vital Signs - 24 hr 05/25/22 16:00 05/25/22 21:46 05/26/22 06:00 Temperature 36.1 C L 36.2 C L Pulse Rate 75 70 68 Respiratory Rate 16 18 Blood Pressure 117/62 107/65 Pulse Oximetry 99 99 Intake/Output Intake/Output: Intake & Output 05/23/22 05/24/22 05/25/22 05/26/22 23:59 23:59 23:59 23:59 Intake Total 1930 2350 1664 1880 Output Total 1600 5750 400 1800 Balance 330 -3400 1264 80 Meds/Results Medications: Active Medications Generic Name Dose Route Start Last Admin Trade Name Freq PRN Reason Stop Dose Admin Hydrocodone Bitart/Acetaminophen 1 tab 05/22/22 23:08 05/24/22 09:17 Hydrocodone/Acetaminophen (*Crx) 7.5-325 Mg Tablet PO 1 tab DAILY PRN Administration Pain Rated 7-10 Albuterol 2.5 mg 05/22/22 23:08 Albuterol Sulfate Neb 2.5 Mg/3 Ml Inh INHALATION TID PRN Shortness Of Breath Or Wheezing Benzonatate 200 mg 05/22/22 23:08 05/24/22 21:44 Benzonatate 100 Mg Capsule PO 200 mg TID PRN Administration cough Ciprofloxacin 1 drop 05/23/22 09:00 05/26/22 12:21 Ciprofloxacin Hcl 0.3% Op Soln 2.5 Ml Btl EACH EYE 1 drop QID REINALDO Administration Clonazepam 0.5 mg 05/26/22 10:40 Clonazepam (*Crx) 0.5 Mg Tablet PO Q12HR PRN Anxiety Dextrose 12.5 gm 05/22/22 23:07 Dextrose 50% 25 Gm/50 Ml Syringe IV PUSH PRN PRN Hypoglycemia Protocol Ergocalciferol 50,000 unit 05/30/22 09:00 Ergocalciferol 50,000 Unit Capsule PO [place]@0900 REINALDO Fenofibrate 145 mg 05/23/22 09:00 05/26/22 08:38 Fenofibrate Nanocrystallized 145 Mg Tablet PO 145 mg QAM REINALDO Administration Fluticasone Propionate 2 spray 05/22/22 23:08 Fluticasone Propionate 0.05% Na Spr 16 Gm Btl (*Bkc) NASAL DAILY PRN Congestion Glucagon 1 mg 05/22/22 23:07 Glucagon For Inj 1 Mg Vial IM PRN PRN Hypoglycemia Protocol Glucose 15 gm 05/22/22 23:07 Glucose Oral Gel 15 Gm Of Glucse In 37.5 Gm Tube PO PRN PRN Hypoglycemia Protocol Dextrose 1,000 mls @ 100 mls/hr 05/22/22 23:07 Dextrose 5% 1,000 Ml IVPB PRN PRN Hypoglycemia Protocol Insulin Aspart 3 - 6 units 05/24/22 17:00 05/26/22 11:38 Insulin Aspart (*Bkc) 100 Units/Ml SUB-Q 4 units TIDWM REINALDO Administration Protocol Insulin Aspart 6 units 05/26/22 12:00 05/26/22 11:38 Insulin Aspart (*Bkc) 100 Units/Ml SUB-Q 6 units TIDWM REINALDO Administration Insulin Glargine 17 units 05/27/22 09:00 Insulin Glargine (*Bkc) 100 Units/Ml SUB-Q QAM REINADLO Levetiracetam 500 mg 05/25/22 21:00 05/26/22 08:38 Levetiracetam 500 Mg Tablet PO 500 mg Q12HR REINALDO Administration Naphazoline HCl/Pheniramine Maleate 1 - 2 drop 05/23/22 09:00 Naphazoline/Pheniramine Ophth Soln 5 Ml Bottle EACH EYE QID PRN ALLERGY SYMPTOMS IN EYE Ondansetron HCl 4 mg 05/23/22 03:53 Ondansetron Inj 4 Mg/2 Ml Vial IV PUSH Q6H PRN Nausea And Vomiting Sertraline HCl 100 mg 05/23/22 09:00 05/26/22 08:38 Sertraline Hcl 50 Mg Tablet PO 100 mg DAILY REINALDO Administration Radiology Results: ITS Impressions Chest X-Ray 05/22/22 15:07 IMPRESSION: No acute cardiopulmonary process. Head CT 05/22/22 15:20 IMPRESSION: No acute intracranial process. Brain MRI 05/23/22 14:35 IMPRESSION: 1. Tiny focus of susceptibility artifact with associated i
[2022-05-26 14:30] LABS: Folic Acid 19.9 ng/mL (2.76->20)
[2022-05-26 16:34] LABS: Glucose Point of Care 106 mg/dl (65-105)
[2022-05-27] VITALS: PULSE 62
[2022-05-27 04:00] VITALS: PULSE 64
[2022-05-27 05:13] VITALS: BP 103/58; PULSE 53; RESP 17; TEMP 36.6; O2SAT 98
[2022-05-27 05:55] LABS: Hematocrit 40.8 % (37.0-47.0); Hemoglobin 13.8 g/dL (12.0-15.0); Mean Corpuscular HGB Conc 33.8 g/dl (32-36); Mean Corpuscular Volume 88.7 fl (80-100); Mean Platelet Volume 10.3 fl (7.4-10.4); Platelet Count Result 155 k/mm3 (150-375); Red Cell Distribution Width 12.8 % (11.5-14.5); White Blood Count 4.9 K/mm3 (4.5-10.0)
[2022-05-27 06:20] LABS: Anion Gap 10 mmol/L (8-16); Blood Urea Nitrogen 12 mg/dL (7-17); Calcium 9.1 mg/dL (8.4-10.2); Carbon Dioxide 25 mmol/L (22-30); Chloride 104 mmol/L (98-107); Estimated CRCL calculation 88 ml/min; Estimated Glomerular Filt Rate > 60; Glucose 199 mg/dL (65-110); Potassium 3.7 mmol/L (3.4-5.0); Sodium 139 mmol/L (137-145)
[2022-05-27 07:45] LABS: Glucose Point of Care 214 mg/dl (65-105)
[2022-05-27 08:00] VITALS: PULSE 72
[2022-05-27] MEDS: INSULIN ASPART (*BKC) 100 UNITS/ML SUB-Q ×2 (08:25→11:27)
[2022-05-27] MEDS: INSULIN ASPART (*BKC) 100 UNITS/ML 6 UNITS SUB-Q ×2 (08:25→11:27)
[2022-05-27] MEDS: CIPROFLOXACIN HCL 0.3% OP SOLN 2.5 ML BTL 1 DROP EACH EYE ×2 (08:25→12:28)
[2022-05-27] MEDS: INSULIN GLARGINE (*BKC) 100 UNITS/ML 17 UNITS SUB-Q (08:26)
[2022-05-27] MEDS: levETIRAcetam 500 MG TABLET PO (08:30)
[2022-05-27] MEDS: FENOFIBRATE NANOCRYSTALLIZED 145 MG TABLET PO (08:30)
[2022-05-27] MEDS: SERTRALINE HCL 50 MG TABLET 100 MG PO (08:30)
[2022-05-27] MEDS: clonazePAM (*CRX) 0.5 MG TABLET PO (08:36)
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
[2022-05-27 11:33] LABS: Glucose Point of Care 216 mg/dl (65-105)
[2022-05-27 12:00] VITALS: PULSE 80
== END 2022-05-27 13:25 | disposition home or self-care (01) | DRG 53 ==
LOC: ANHED 14:33 → ANH3MEDSUR 18:41
PROVIDERS: Nurse Practitioner; Physician Assistant; Admitting Provider Internal Medicine; Emergency Provider Emergency Medicine; PCP Physician Assistant; Visit Provider Internal Medicine
DX: R56.9 Unspecified convulsions (principal); G93.41 Metabolic encephalopathy; R90.89 Other abnormal findings on diagnostic imaging of central nervous system; F41.9 Anxiety disorder, unspecified; F43.10 Post-traumatic stress disorder, unspecified; F41.0 Panic disorder [episodic paroxysmal anxiety]; E78.5 Hyperlipidemia, unspecified; E11.9 Type 2 diabetes mellitus without complications; J45.909 Unspecified asthma, uncomplicated; K76.0 Fatty (change of) liver, not elsewhere classified
CPT/HCPCS: 36415; 51701; 70450; 70551; 71045; 80048; 80053; 80307; 81001; 82140; 82607; 82746; 82948; 83036; 83605; 83735; 83880; 84443; 84484; 85025; 85027; 85610; 85730; 87086; 93005; 93306; 95816; 96361; 96365; 96368; 96375; 96376; 99285; A9270; G0378; G0379; J0696; J1815; J1953; J7030; J7060

== ENCOUNTER 2022-11-10 10:30 | Outpatient (CLI) | payer OTHER, SELFPAY ==
--- NOTE | ~2022-11-10 | MR_ITS ---
EXAMINATION: MR brain/brain stem wo/w con DATE: 11/10/2022 11:33 INDICATION: Prior abnormal brain MRI. TECHNIQUE: Magnetic resonance imaging (MRI) of the brain and brainstem was performed without and with 15 mL Multihance intravenous contrast. Sequences included sagittal and axial T1-weighted SE, axial d iffusion-weighted FS SE, axial 3D SWAN, axial T2-weighted FLAIR, and axial T2-weighted FSE. Postcontr ast axial and coronal T1-weighted SE was obtained. Apparent diffusion coefficient (ADC) maps were cre ated. COMPARISON: Brain MR dated 05/23/2022 and PET/CT dated 05/22/2022. FINDINGS: There are no areas of restricted diffusion to suggest acute infarction. No abnormal intracranial mass lesion. Again seen is a small focus of susceptibility artifact in the left basal ganglia which is sl ightly more prominent than on the prior study. There is additional relatively symmetric focus of susc eptibility artifact in the right basal ganglia which was not visualized on the prior study. Differenc es are likely related to the higher degree of sensitivity of the SWAN versus the T2* sequences. This images most likely related to age-related dystrophic calcifications although differential would inclu de blood products related to prior microhemorrhage. There are no intraparenchymal signal abnormalitie s seen on the other pulse sequences. The ventricles are symmetric and normal in size. There are no ab normal extra-axial fluid collections. Flow voids are seen in the cerebral arteries on the T2-weighted sequences consistent with their expected patency. Unchanged small left and trace right mastoid effus ions. Visualized orbits and soft tissues are unremarkable. There are no areas of abnormal enhancement on the post contrast images. IMPRESSION: 1. Tiny foci of susceptibility artifact at the bilateral basal ganglia which given the symmetry and l ocation are most likely secondary to age-related dystrophic calcifications. Differential would includ e less likely old blood products related to prior microhemorrhage. In the more prominent appearance o n the current study is due to utilization of the more sensitive SWAN imaging sequence versus T2* sequ ence on the prior study. Reviewed, dictated and finalized at location A. IMPRESSION: 1. Tiny foci of susceptibility artifact at the bilateral basal ganglia which gi muriel the symmetry and location are most likely secondary to age-related dystroph ic calcifications. Differential would include less likely old blood products re lated to prior microhemorrhage. In the more prominent appearance on the current study is due to utilization of the more sensitive SWAN imaging sequence versus T2* sequence on the prior study.
== END 2022-11-10 10:31 | disposition home or self-care (01) ==
PROVIDERS: Visit Provider Psychiatry & Neurology Neurology
DX: R90.89 Other abnormal findings on diagnostic imaging of central nervous system (principal)
CPT/HCPCS: 70553; A9577

== ENCOUNTER 2023-01-10 09:26 | Observation (INO) | payer OTHER, SELFPAY ==
--- NOTE | ~2023-01-10 | CT_ITS ---
EXAMINATION: CT brain wo con DATE: 01/10/2023 09:50 INDICATION: Seizure. Headache. TECHNIQUE: Computed tomography (CT) of the head was performed without intravenous contrast. The mA wa s adjusted according to patient size. Iterative reconstruction technique was employed. The dose-lengt h product was 605.33 mGy-cm. COMPARISON: Head CT 05/22/2022 FINDINGS: There is no intracranial hemorrhage, acute infarction, or abnormal intracranial mass lesion . The ventricles are normal in size. The orbits are normal. The paranasal sinuses are clear. The mast oid air cells are normal. IMPRESSION: 1. Normal brain. Reviewed, dictated and finalized at location A. IMPRESSION: 1. Normal brain.
[2023-01-10 09:29] VITALS: BP 156/88; PULSE 81; RESP 18; TEMP 36.7; O2SAT 100
--- NOTE | 2023-01-10 09:32 | ECG_ITS ---
Measurements Intervals [place] Rate: 84 P: 27 VA: 138 QRS: 14 QRSD: 85 T: 29 QT: 370 QTc: 438 Interpretive Statements SINUS RHYTHM MINIMAL Q WAVES- INFERIOR LEADS BASELINE ARTIFACT- II, III, AVF BORDERLINE ECG COMPARED TO ECG 05/22/2022 14:34:17 NO SIGNIFICANT CHANGES Electronically Signed On 01-10-2023 11:29:59 CDT by Brooks Garces D.O.
[2023-01-10] MEDS: levETIRAcetam 500MG/NACL 100ML 500 MG/100 ML BAG 400 MG IVPB (10:17)
[2023-01-10 10:41] LABS: Basophils Percent Auto 0.5 % (0.2-1.2); Eosinophils Absolute Auto 0.1 K/mm3 (0-0.3); Eosinophils Percent Auto 1.9 % (0-4.4); Hematocrit 42.9 % (37.0-47.0); Hemoglobin 14.5 g/dL (12.0-15.0); Lymphocytes Absolute Auto 1.57 K/mm3 (0.9-3.2); Lymphocytes Percent Auto 41.8 % (18.3-44.2); Mean Corpuscular HGB Conc 33.8 g/dl (32-36); Mean Corpuscular Hemoglobin 29.6 pg (26-34); Mean Corpuscular Volume 87.6 fl (80-100); Mean Platelet Volume 10.7 fl (7.4-10.4); Monocytes Absolute Auto 0.2 K/mm3 (0.1-0.6); Monocytes Percent Auto 4.8 % (2.6-8.5); Neutrophils Absolute Auto 1.9 K/mm3 (1.3-6.7); Platelet Count Result 144 k/mm3 (150-375); Red Cell Distribution Width 13.4 % (11.5-14.5); White Blood Count 3.8 K/mm3 (4.5-10.0)
[2023-01-10 11:10] LABS: Appearance Urine Clear (Clear); Bacteria Urine None Seen /hpf; Bilirubin Urine Negative (Negative); Blood Urine Negative (Negative); Color Urine Yellow (Yellow); Glucose Urine UA Negative (Negative); Ketones Urine Negative (Negative); Leukocyte Esterase Ur 2+ LEU/UL (Negative); Nitrate Urine Negative (Negative); Non Pathogenic Casts 0-2; Protein Urine Negative (Negative); RBC Urine 0-2 /hpf (0-2); Specific Grav Ur 1.008 (1.001-1.035); Squamous Epithelial Cell Urine None seen /hpf (Few); Urobilinogen Urine 0.2 mg/dL (<2.0)
--- NOTE | 2023-01-10 11:12 | ED.GENADULT ---
HPI - General Adult General Chief complaint: Seizure Stated complaint: seizure Time Seen by Provider: 01/10/23 09:31 History of Present Illness HPI narrative: Patient is a 52-year-old female who presents ER with seizure. Patient was on the toilet and went limp which reports is her typical presentation of a seizure. Sometimes it is provoked by stress and today a commander police reserves came to their home. Patient is in no legal trouble according to the . There is been no change in her medications. She did take a Valium this morning but had not yet taken her Keppra. She was most recently seen by Dr. Cazares in the outpatient setting. Patient had a normal routine EEG. Related Data Home Medications Medication Instructions Recorded Confirmed sertraline 100 mg tablet 100 mg PO DAILY 09/08/19 01/10/23 albuterol sulfate 2.5 mg/3 mL 2.5 mg continuous nebulization TID 05/15/22 01/10/23 (0.083 %) solution for nebulization PRN Shortness Of Breath Or Wheezing albuterol sulfate 90 mcg/actuation 90 mcg inhalation TID PRN 05/15/22 01/10/23 aerosol inhaler Shortness Of Breath Or Wheezing ergocalciferol (vitamin D2) 1,250 1,250 mcg PO WEEKLY 05/15/22 01/10/23 mcg (50,000 unit) capsule fenofibrate micronized 134 mg 134 mg PO DAILY 05/15/22 01/10/23 capsule fluticasone propionate 50 50 mcg intranasal DAILY PRN 05/15/22 01/10/23 mcg/actuation nasal Congestion spray,suspension metformin 500 mg tablet 1,000 mg PO BIDAC 05/15/22 01/10/23 ondansetron 4 mg disintegrating 4 mg translingual 3XD PRN Nausea 05/22/22 01/10/23 tablet diazepam 10 mg tablet 10 mg PO BID PRN Seizures 11/12/22 01/10/23 Allergies Allergy/AdvReac Type Severity Reaction Status Date / Time No Known Allergies Allergy Verified 05/22/22 20:35 Review of Systems Review of Systems: ROS unobtainable: Yes unobtainable due to mental status PMFSH Past Medical History Medical History Agoraphobia Anxiety Asthma Diabetes mellitus Hepatic steatosis High cholesterol Insulin dependent diabetes mellitus Panic attack Pneumonia PTSD (post-traumatic stress disorder) Surgical History Surgical History H/O cardiac catheterization no CAD H/O hernia repair H/O lumpectomy x8, benign History of x3 History of colonoscopy History of esophagogastroduodenoscopy (EGD) History of facial surgery Multiple surgical debridements of MRSA infection of chin Family History Family History Unknown No problems noted. Social History Social History (Updated 11/12/22 @ 09:27 by Brittany Ye MA) Social History: the patient is . She is currently unemployed. She has 3 children. She denies any alcohol. She states she is disabled. No marijuana or illicit drugs. Her is the durable power corporate attorney for healthcare. Code status full code Smoking status: Former smoker Second hand tobacco smoke exposure: Yes Additional smoking assessment comments: I used to smoke as a teenager. About 1-2 cigarettes on the weeekends. Alcohol intake: never Substance use: never Lack of Transportation: YES Lack of Food: Sometimes True Current Housing: I Have Housing Concerned About Future Housing: YES Difficulty Paying Gas/Electric Bills: YES Difficulty Paying for Meds: No Currently Unemployed: No Education: Grade School Difficulty w/ Childcare or Family Care: No Gender identity (if verbalized by the patient): Female Spiritual care concerns: Yes (Mandaeism) Exam Narrative: GENERAL: Well-appearing, well-nourished, and in no acute distress. HEAD: Normocephalic, atraumatic. EYES: PERRL and EOMI. ENT: Mucous membranes moist. CHEST: Clear to auscultation. No respiratory distress. HEART: Regular rate and rhythm. Normal peripheral pulses. ABDOMEN: Soft, no
[2023-01-10 11:15] LABS: Add Urine Microscopic? YES
[2023-01-10 11:25] LABS: Ethanol < 10 mg/dL (<10)
[2023-01-10 11:26] LABS: Alanine Aminotransferase 28 U/L (6-35); Albumin Level 4.4 g/dL (3.5-5.1); Alkaline Phosphatase 42 U/L (38-126); Anion Gap 7 mmol/L (8-16); Aspartate Amino Transferase 33 U/L (14-36); Bilirubin,Total 0.6 mg/dL (0.2-1.3); Blood Urea Nitrogen 12 mg/dL (7-17); Carbon Dioxide 25 mmol/L (22-30); Chloride 104 mmol/L (98-107); Estimated CRCL calculation 130 ml/min; Estimated Glomerular Filt Rate > 60; Glucose 209 mg/dL (65-110); Sodium 136 mmol/L (137-145)
[2023-01-10 11:33] LABS: Amphetamine Screen Urine Negative (Negative); Barbiturate Screen Urine Negative (Negative); Benzodiazepines Screen Urine Positive (Negative); Cannabinoid Screen Urine Negative (Negative); Cocaine Screen Urine Negative (Negative); Methadone Screen Urine Negative (Negative); Opiate Screen Urine Negative (Negative); Phencyclidine Screen Urine Negative (Negative)
[2023-01-10] MEDS: ACETAMINOPHEN 325 MG TABLET 650 MG PO (13:17)
--- NOTE | 2023-01-10 13:54 | PC.NURSE ---
Pt refuses to answer questions regarding alertness. Pt became irritated and hostile with MD and nurse. Stating she hated the hospital and the doctor and c/o that she has hx of seizures and no one believes her. Pt went out the front door and through shoes on ground and left the premise. Baljinder TAYLOR contacted.
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
--- NOTE | 2023-01-10 14:45 | PC.NURSE ---
Explained to that tried to call him when pt eloped but only had one phone number and no one answered.
[2023-01-10 17:05] VITALS: BP 120/78; PULSE 88; RESP 18; O2SAT 96
[2023-01-10 18:06] VITALS: BMI 30.3
[2023-01-10 18:44] LABS: Glucose Point of Care 154 mg/dl (65-105)
[2023-01-10] MEDS: HYDROcodone/acetaminophen (*CRX) 5-325 MG TABLET 1 TAB PO (19:54)
[2023-01-10 20:00] VITALS: PULSE 80; PULSE 93; RESP 17; O2SAT 100
[2023-01-10 20:33] LABS: Glucose Point of Care 164 mg/dl (65-105)
[2023-01-10 21:03] VITALS: BP 127/75; PULSE 80; RESP 17; TEMP 36.9; O2SAT 100
--- NOTE | 2023-01-10 21:48 | PM.IMHP ---
H&P: HPI History of Present Illness Date/Time: 01/10/23 20:45 Chief Complaint: Seizures. Narrative: This is a 52-year-old female with history of seizures, diabetes, asthma, and anxiety who presented to the emergency department via EMS from home for evaluation of seizures. The patient remembers going to bed last night but nothing thereafter and thus a majority the following history is obtained from her , with the patient's permission. She felt just fine when she went to bed last night. This morning she was apparently on the toilet and she went limp and was unresponsive which he states is typically however seizures present. She took diazepam this morning but had not yet taken her levetiracetam. The patient and her report that she is compliant with these medications. She is followed by Dr. Cazares and last saw her in the office at the end of October and she was told to continue taking Keppra 500 mg b.i.d. and she was prescribed topiramate 25 mg b.i.d. for daily migraine headaches. Topiramate is not listed on her home medication reconciliation list thus I am not certain she had this filled. In any event, her workup in the ED was pretty unremarkable. At 1 point she became agitated and eloped from the ER and the police were summoned to bring her back as she was not yet alert and oriented. Due to prolonged ictal state I was asked to admit the patient. She complains of blisters on the bottom of her feet from being on the hot asphalt outdoors. The blisters and daily headaches are her main complaints at this time. She denies focal weakness, paresthesias, visual changes, fever, chills, sweats, chest pain, shortness a breath, nausea, vomiting, and diarrhea. She does not consume alcohol in any significant quantities. She has not missed any doses of her medications. She takes a diazepam very rarely. Review of Systems Review of Systems: Twelve systems were reviewed and are negative except for as per HPI. [facility] Past Medical History Medical History (Updated 01/10/23 @ 22:04 by Kayla Isidro PA-C) Agoraphobia Anxiety Asthma Hepatic steatosis High cholesterol Insulin dependent diabetes mellitus Panic attack Pneumonia Post traumatic stress disorder Type 2 diabetes mellitus Surgical History Surgical History H/O cardiac catheterization no CAD H/O hernia repair H/O lumpectomy x8, benign History of x3 History of colonoscopy History of esophagogastroduodenoscopy (EGD) History of facial surgery Multiple surgical debridements of MRSA infection of chin Family History Family History Unknown No problems noted. Social History Social History (Updated 01/10/23 @ 21:58 by Kayla Isidro PA-C) Social History: Surrogate medical decision maker: Tadeo Garrett, spouse. Code status: Full code. Smoking status: Former smoker Second hand tobacco smoke exposure: Yes Additional smoking assessment comments: I used to smoke as a teenager. About 1-2 cigarettes on the weeekends. Alcohol intake: never Substance use: never Lack of Transportation: YES Lack of Food: Sometimes True Current Housing: I Have Housing Concerned About Future Housing: YES Difficulty Paying Gas/Electric Bills: YES Difficulty Paying for Meds: No Currently Unemployed: No Education: Grade School Difficulty w/ Childcare or Family Care: No Additional living arrangements comments: Lives with spouse in [place]. 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 Spiritual care concerns: Yes (Sabianist) Meds Home Medications and Allergies Home Medications Medication Instructions Recorded Confirmed Type sertraline 100 mg tablet 100 mg PO DAILY 09/08/19 01/10/23 History albuterol sulfate 2.5 mg/3 mL 2.5 mg continuous nebulization TID 05/15/22 01/10/23 History (0.083 %) solution for nebuliza
[2023-01-10] MEDS: levETIRAcetam 500 MG TABLET BY MOUTH (23:37)
[2023-01-11] VITALS: PULSE 70
[2023-01-11 04:00] VITALS: PULSE 71
[2023-01-11 05:19] VITALS: BP 110/60; PULSE 66; RESP 17; TEMP 36.9; O2SAT 95
[2023-01-11 06:10] LABS: Hemoglobin A1C 9.3 % (<5.7)
[2023-01-11 08:00] VITALS: PULSE 70
[2023-01-11 09:16] LABS: Glucose Point of Care 206 mg/dl (65-105)
[2023-01-11] MEDS: INSULIN ASPART (*BKC) 100 UNITS/ML SUB-Q ×2 (09:17→13:21)
[2023-01-11] MEDS: INSULIN GLARGINE (*BKC) 100 UNITS/ML 17 UNITS SUB-Q (09:17)
[2023-01-11] MEDS: SERTRALINE HCL 50 MG TABLET 100 MG PO (09:18)
[2023-01-11] MEDS: metFORMIN HCL 500 MG TABLET 1000 MG PO (09:18)
[2023-01-11] MEDS: HYDROcodone/acetaminophen (*CRX) 5-325 MG TABLET 1 TAB PO (09:18)
[2023-01-11] MEDS: FENOFIBRATE NANOCRYSTALLIZED 145 MG TABLET PO (09:19)
[2023-01-11] MEDS: levETIRAcetam 500 MG TABLET BY MOUTH (09:19)
--- NOTE | 2023-01-11 09:37 | WPDNEURCNPN ---
Assessment and Plan Assessment and plan (1) Seizure: Code(s): R56.9 - Unspecified convulsions Status: Acute (2) Breakthrough seizure: Code(s): G40.919 - Epilepsy, unspecified, intractable, without status epilepticus Status: Acute Plan Colette Garrett is a 52 year old female with a history of diabetes, epilepsy, asthma, anxiety who presents due to breakthrough seizure. Seems to be unprovoked. - Increase Keppra to 750mg BID - No driving until seizure free for 6 months Consult date: 01/11/23 Reason for consult: Breakthrough seizure HPI: Colette Garrett is a 52 year old female with a history of diabetes, epilepsy, asthma, anxiety who presents due to breakthrough seizure. Patient was reportedly normal when she went to bed last night. The following morning while she was on the toilet, she became limp and unresponsive which is reportedly her typical seizure semiology. She took diazepam in the morning. Patient reported good compliance. Patient was taken to the ED for further evaluation. She was notably agitated and eloped from the ED, which required the police to bring her back. Due to prolonged post-ictal state/medication effect, patient required admission. She denies any recent illness or other provoking factors. No missed doses of her Keppra 500mg BID. Of note, patient had her first seizure in May 2022. Patient was found unresponsive by her granddaughter at home and on EMS arrival, patient was noted to have darting eye movements that were concerning for seizure. MRI brain showed possible dystrophic calcification in basal ganglia. Routine EEG was normal. She was started on Keppra 500mg BID. Review of Systems Constitutional: Constitutional: Denies chills, Denies fever(s) and Denies weight loss Eyes: Eyes: Denies diplopia and Denies loss of vision ENT: Denies dizziness, Denies hearing loss and Denies tinnitus Cardiovascular: Cardiovascular: Reports chest pain, Denies syncope and Reports dyspnea Respiratory: Respiratory: Denies cough, Denies dyspnea and Denies wheezing Gastrointestinal: Gastrointestinal: Reports abdominal pain, Denies change in bowel habits and Denies vomiting Genitourinary: Genitourinary: Reports urinary incontinence Musculoskeletal: Musculoskeletal: Reports arthralgias and Denies joint swelling Integumentary/Breasts: Skin/Breast: Denies new lesions and Denies rash Neurologic: Reports as per HPI, Denies dizziness, Denies syncope and Denies loss of vision Psychiatric: Psychiatric: Reports anxiety and Reports depression Endocrine: Endocrine: Denies cold intolerance and Denies heat intolerance Hematologic/Lymphatic: Hematologic/Lymphatic: Denies easy bleeding and Denies easy bruising Allergic/Immunologic: Allergic/Immunologic: Denies no additional allergic/immunologic complaints and Denies wheezing PMFSH Past Medical History Medical History Agoraphobia Anxiety Asthma Hepatic steatosis High cholesterol Insulin dependent diabetes mellitus Panic attack Pneumonia Post traumatic stress disorder Type 2 diabetes mellitus Surgical History Surgical History H/O cardiac catheterization no CAD H/O hernia repair H/O lumpectomy x8, benign History of x3 History of colonoscopy History of esophagogastroduodenoscopy (EGD) History of facial surgery Multiple surgical debridements of MRSA infection of chin Family History Family History Unknown No problems noted. Social History Social History Social History: Surrogate medical decision maker: Tadeo Garrett, spouse. Code status: Full code. Smoking status: Former smoker Second hand tobacco smoke exposure: Yes Additional smoking assessment comments: I used to smoke as a teenager. About 1-2 cigarettes on
[2023-01-11] MEDS: levETIRAcetam 250 MG TABLET PO (11:01)
[2023-01-11 12:00] VITALS: PULSE 93
[2023-01-11 12:26] LABS: Glucose Point of Care 282 mg/dl (65-105)
[2023-01-11] MEDS: SILVERGEL (ELTA) 45 ML 1 APPLIC TOPICAL (13:21)
[2023-01-11 13:52] VITALS: BP 113/64; PULSE 82; RESP 16; TEMP 36.2; O2SAT 97
--- NOTE | 2023-01-11 14:44 | PM.DS ---
DS: Admitting Diagnosis Discharge Date 01/11/2023 Admitting Diagnosis Breakthrough seizure Epilepsy, unspecified, intractable, without status epilepticus Type 2 diabetes mellitus without complications Migraine, unspecified, not intractable, without status migrainosus DS: Discharge Diagnosis Discharge Diagnosis (1) Breakthrough seizure: Code(s): G40.919 - Epilepsy, unspecified, intractable, without status epilepticus Status: Acute Assessment and Plan: Patient reportedly had a seizure while on the toilet at which time she became limp and unresponsive. Precipitating etiology is not clear if she states compliance with her medications. Urine is positive for benzodiazepines so it is unlikely this is due to withdrawal. She remained confused in the ED and admitted for breakthrough seizures and presumed prolonged postictal state. She was given 500 mg IV of levetiracetam in the ED as she missed her morning dose. Initiate seizure precautions. Neurology consulted and increased patient's Keppra dose to 750 mg PO BID. Patient AOx4, but slightly slow to answer at the time of discharge. Follow up with Neurology outpatient. (2) Type 2 diabetes mellitus: Qualifiers: Diabetes mellitus foreclosure specialist insulin use: with foreclosure specialist use Diabetes mellitus complication status: with hyperglycemia Qualified Code(s): E11.65 - Type 2 diabetes mellitus with hyperglycemia; Z79.4 - heddler tier (current) use of insulin Code(s): E11.9 - Type 2 diabetes mellitus without complications Status: Chronic Assessment and Plan: A1c 9.3%. Uncontrolled. Continued metformin. Initiate sliding scale insulin, Accu-Cheks, and hypoglycemic protocol. Increased basal insulin Levemir 20 units daily. She was counseled on diet, exercise, medications and foot care. (3) Migraine headache: Qualifiers: Migraine type: unspecified Status migrainosus presence: without status migrainosus Intractability: not intractable Qualified Code(s): G43.909 - Migraine, unspecified, not intractable, without status migrainosus Code(s): G43.909 - Migraine, unspecified, not intractable, without status migrainosus Status: Chronic Assessment and Plan: She was prescribed topiramate per Dr. Cazares at the end of October but it does not look like she is taking that for unclear reasons. No ROSARIO complaints. (4) Wound, open, foot: Qualifiers: Encounter type: initial encounter Laterality: left Qualified Code(s): S91.302A - Unspecified open wound, left foot, initial encounter Code(s): S91.309A - Unspecified open wound, unspecified foot, initial encounter Status: Acute Assessment and Plan: Open blister to plantar surface left foot from walking barefoot on hot blacktop. She was counseled on foot care. No s/s infection. DS: Summary Hospital Course Reason for hospitalization: Seizures Hospital Course: Patient is a 52-year-old female with history of seizures, diabetes, asthma, and PTSD who presented to the emergency department via EMS from home for evaluation of seizures. The patient remembers going to bed the previous night but nothing thereafter and thus a majority the following history was obtained from her . She reportedly felt fine when she went to bed the previous night, however, the following morning she was apparently on the toilet, went limp, was unresponsive and her states this is typically how her seizures present. She took diazepam that morning but had not yet taken her levetiracetam. The patient and her report that she is compliant with antiepileptic medications. She is followed by Dr. Cazares and last saw her in the office at the end of October and she was told to continue taking Keppra 500 mg b.i.d. and she was prescribed topiramate 25 mg b.i.d. for daily migraine headaches. Topiramate is not listed on her home medication reconciliation list thus it is not certain she had this f
== END 2023-01-11 15:57 | disposition home or self-care (01) ==
LOC: ANHED 09:56 → ANH2MED 19:04
PROVIDERS: Physician Assistant; Admitting Provider Internal Medicine; Emergency Provider Emergency Medicine; Visit Provider Student in an Organized Health Care Education/Training Program
DX: G40.919 Epilepsy, unspecified, intractable, without status epilepticus (principal); E11.9 Type 2 diabetes mellitus without complications; G43.909 Migraine, unspecified, not intractable, without status migrainosus; J45.909 Unspecified asthma, uncomplicated; F40.00 Agoraphobia, unspecified; F41.9 Anxiety disorder, unspecified; K76.0 Fatty (change of) liver, not elsewhere classified; E78.00 Pure hypercholesterolemia, unspecified; Z79.4 Long term (current) use of insulin; F41.0 Panic disorder [episodic paroxysmal anxiety]; F43.10 Post-traumatic stress disorder, unspecified; Z87.891 Personal history of nicotine dependence; Z87.01 Personal history of pneumonia (recurrent); Z79.51 Long term (current) use of inhaled steroids; Z79.84 Long term (current) use of oral hypoglycemic drugs; Z79.899 Other long term (current) drug therapy
CPT/HCPCS: 36415; 70450; 80053; 80307; 81001; 82948; 83036; 85025; 87086; 93005; 96365; 99285; A9270; G0378; G0379; J1815; J1953

== ENCOUNTER 2024-04-26 15:04 | Emergency (ER) | payer OTHER, SELFPAY ==
--- NOTE | ~2024-04-26 | XR_ITS ---
EXAMINATION: XR forearm LT 2V DATE: 04/26/2024 15:28 INDICATION: Left forearm dog bite. TECHNIQUE: 2 views of left forearm were obtained. COMPARISON: None. FINDINGS: Alignment is normal. There is a small calcification dorsal to the carpus on the lateral vie w. There is mild osteoarthritis of first carpometacarpal joint. No elbow joint effusion. IMPRESSION: 1. Small calcification dorsal to the carpus on the lateral view, which may be a loose body or an avul cuco fracture of dorsal pole of triquetrum. Reviewed, dictated and finalized at location A. IMPRESSION: 1. Small calcification dorsal to the carpus on the lateral view, which may be a loose body or an avulsion fracture of dorsal pole of triquetrum.
--- NOTE | 2024-04-26 15:07 | ED.GENADULT ---
HPI - General Adult General Chief complaint: Animal Bite Stated complaint: Dog Bite Time Seen by Provider: 04/26/24 15:17 Source: patient, RN notes reviewed and old records reviewed Mode of arrival: ambulatory Limitations: no limitations History of Present Illness HPI narrative: 53-year-old female presents to the [facility] with complaints of a dog bite to the mid left forearm occurred about 3 hours prior to arrival. Unknown last Tdap. States it was her dog, dog is up-to-date on immunizations. Patient states that she was playing with her dog with a rope when the dog bit her. Onset (ago): hour(s) (3) Treatments prior to arrival: other (Valium for anxiety) Related Data Home Medications Medication Instructions Recorded Confirmed sertraline 100 mg tablet 100 mg PO DAILY 09/08/19 04/26/24 albuterol sulfate 2.5 mg/3 mL 2.5 mg continuous nebulization TID 05/15/22 04/26/24 (0.083 %) solution for nebulization PRN Shortness Of Breath Or Wheezing albuterol sulfate 90 mcg/actuation 90 mcg inhalation TID PRN 05/15/22 04/26/24 aerosol inhaler Shortness Of Breath Or Wheezing ergocalciferol (vitamin D2) 1,250 1,250 mcg PO WEEKLY 05/15/22 04/26/24 mcg (50,000 unit) capsule fenofibrate micronized 134 mg 134 mg PO DAILY 05/15/22 04/26/24 capsule fluticasone propionate 50 50 mcg intranasal DAILY PRN 05/15/22 04/26/24 mcg/actuation nasal Congestion spray,suspension metformin 500 mg tablet 1,000 mg PO BIDAC 05/15/22 04/26/24 diazepam 10 mg tablet 10 mg PO BID PRN Seizures 11/12/22 04/26/24 levetiracetam 750 mg tablet 500 mg PO Q12HR 04/26/24 04/26/24 Allergies Allergy/AdvReac Type Severity Reaction Status Date / Time No Known Allergies Allergy Verified 04/26/24 15:14 Review of Systems Review of Systems: All systems reviewed & are unremarkable except as noted in HPI and below Constitutional: Constitutional: Reports no additional constitutional complaints Eyes: Eyes: Reports no additional eye complaints ENT: Reports system reviewed and no additional complaints, except as documented Cardiovascular: Cardiovascular: Reports no additional cardiovascular complaints, Denies chest pain and Denies dyspnea Respiratory: Respiratory: Reports no additional respiratory complaints, Denies chest congestion, Denies cough and Denies dyspnea Gastrointestinal: Gastrointestinal: Reports no additional gastrointestinal complaints, Denies abdominal pain, Denies nausea and Denies vomiting Musculoskeletal: Musculoskeletal: Reports no additional musculoskeletal complaints Integumentary/Breasts: Skin/Breast: Reports as per HPI Neurologic: Reports system reviewed and no additional complaints, except as documented Psychiatric: Psychiatric: Reports no additional psychiatric complaints Allergic/Immunologic: Allergic/Immunologic: Reports no additional allergic/immunologic complaints [facility] Past Medical History Medical History (Updated 04/26/24 @ 20:25 by Any Torres APRN) Agoraphobia Anxiety Asthma Hepatic steatosis High cholesterol Insulin dependent diabetes mellitus Panic attack Pneumonia Post traumatic stress disorder Type 2 diabetes mellitus Surgical History Surgical History H/O cardiac catheterization no CAD H/O hernia repair H/O lumpectomy x8, benign History of x3 History of colonoscopy History of esophagogastroduodenoscopy (EGD) History of facial surgery Multiple surgical debridements of MRSA infection of chin Family History Family History Unknown No problems noted. Social History Social History Social History: Surrogate medical decision maker: Tadeo Garrett, spouse. Code status: Full code. Smoking status: Former smoker Second hand tobacco smoke exposure: Yes Additional smoking assessment comments: I used to smoke as a teen
[2024-04-26 15:19] VITALS: BP 129/68; PULSE 93; RESP 18; TEMP 36.4; O2SAT 99
[2024-04-26] MEDS: TETANUS,DIPHTHERIA,AC PERTUSSIS ADULT (0.5 ML) BOOSTRIX IM (15:40)
[2024-04-26 16:35] VITALS: O2SAT 100
[2024-04-26 16:35] LABS: Glucose Point of Care 241 mg/dl (65-105)
[2024-04-26] MEDS: SODIUM CHLORIDE 0.9% IV 1,000 ML 999 ML IV CONT (16:35)
[2024-04-26 16:37] VITALS: BP 82/57; PULSE 65; RESP 14; O2SAT 100
--- NOTE | 2024-04-26 16:44 | ECG_ITS ---
Test Date: 2024-04-26 16:33:17 Measurements Intervals [place] Rate: 79 P: 31 WA: 131 QRS: 28 QRSD: 88 T: 32 QT: 382 QTc: 438 Interpretive Statements SINUS RHYTHM NORMAL ECG No previous ECG available for comparison Electronically Signed On 04-26-2024 19:01:34 CDT by Brooks Garces D.O.
== END 2024-04-26 16:37 | disposition short-term general hospital (02) ==
PROVIDERS: Emergency Provider Nurse Practitioner; PCP Internal Medicine Gastroenterology
DX: G40.909 Epilepsy, unspecified, not intractable, without status epilepticus (principal); S51.852A Open bite of left forearm, initial encounter; W54.0XXA Bitten by dog, initial encounter; Z23 Encounter for immunization; Z87.891 Personal history of nicotine dependence; J45.909 Unspecified asthma, uncomplicated; K76.0 Fatty (change of) liver, not elsewhere classified; E78.00 Pure hypercholesterolemia, unspecified; E11.9 Type 2 diabetes mellitus without complications; Z79.84 Long term (current) use of oral hypoglycemic drugs; F41.9 Anxiety disorder, unspecified
CPT/HCPCS: 73090; 82948; 90471; 90715; 93005; 99215; G0463; J7030

== ENCOUNTER 2024-04-26 16:54 | Emergency (ER) | payer OTHER, SELFPAY ==
[2024-04-26 17:00] VITALS: BP 128/77; PULSE 78; RESP 12; TEMP 36.8; O2SAT 99
--- NOTE | 2024-04-26 17:11 | ED.SEIZURE ---
HPI - Seizure General Chief Complaint: Seizure Stated Complaint: Seizure Source: patient, family, EMS and other (Nurse practitioner at urgent care) Mode of arrival: EMS Limitations: no limitations History of Present Illness HPI Narrative: Patient presents after reportedly having a seizure. Nurse-practitioner Urgent Care had called initially regarding the patient given patient had presented to their facility with concern for a dog bite she sustained earlier today. Wound been cleaned out tetanus updated and shortly after patient, who has a seizure history, was noted to say that she felt unwell and her eyes were noted to superiorly deviate. Blood sugar was reportedly acceptable. They reported that they were sending her by EMS given the or concerned about her ability to drive. Shortly thereafter, nurse-practitioner notified emergency department that patient had subsequently had two observable seizures while still in the urgent care setting. She loss consciousness and demonstrated seizure like activity without return to baseline mentation in between. I did advise her to inform EMS to administer a benzodiazepine as per their protocol for status epilepticus. Upon patient's arrival she is alert. She is somewhat postictal she has a bit of confusion but otherwise is nearly back to baseline mentation. It is not reported that EMS administered any medication given that she was not actively seizing at the time. She does not recall the events of this afternoon. She denies any tongue trauma or incontinence of bladder which she states is unusual because normally she does. Patient is on Keppra b.i.d. 500 mg as well as diazepam 2 mg q.12 hours which she has been taking regularly. Despite this, she notes that she has had several breakthrough seizures recently including twice being required to be taken 2 [facility]. She took her morning doses of her antiepileptic medications. Other than recently being on antibiotic for urinary tract infection of which she has completed the course, no new medications. Her antiepileptic drug regimen has been a steady dose but she does have an appointment to see her neurologist on May 25, 2024. Seizure History: Yes (past hx of seizures in childhood) Related Data Home Medications Medication Instructions Recorded Confirmed sertraline 100 mg tablet 100 mg PO DAILY 09/08/19 04/26/24 albuterol sulfate 2.5 mg/3 mL 2.5 mg continuous nebulization TID 05/15/22 04/26/24 (0.083 %) solution for nebulization PRN Shortness Of Breath Or Wheezing albuterol sulfate 90 mcg/actuation 90 mcg inhalation TID PRN 05/15/22 04/26/24 aerosol inhaler Shortness Of Breath Or Wheezing ergocalciferol (vitamin D2) 1,250 1,250 mcg PO WEEKLY 05/15/22 04/26/24 mcg (50,000 unit) capsule fenofibrate micronized 134 mg 134 mg PO DAILY 05/15/22 04/26/24 capsule fluticasone propionate 50 50 mcg intranasal DAILY PRN 05/15/22 04/26/24 mcg/actuation nasal Congestion spray,suspension metformin 500 mg tablet 1,000 mg PO BIDAC 05/15/22 04/26/24 diazepam 10 mg tablet 10 mg PO BID PRN Seizures 11/12/22 04/26/24 levetiracetam 750 mg tablet 500 mg PO Q12HR 04/26/24 04/26/24 Allergies Allergy/AdvReac Type Severity Reaction Status Date / Time No Known Allergies Allergy Verified 04/26/24 15:14 [facility] Past Medical History Medical History Agoraphobia Anxiety Asthma Epilepsy Hepatic steatosis High cholesterol Insulin dependent diabetes mellitus Panic attack Pneumonia Post traumatic stress disorder Type 2 diabetes mellitus Surgical History Surgical History H/O cardiac catheterization no CAD H/O hernia repair H/O lumpectomy x8, benign History of x3 History of colonoscopy History of esophagogastroduodenoscopy (EGD) History of facial surgery Multiple surgical debridements of MRSA infection of chin Family Histo
[2024-04-26 17:41] LABS: Basophils Percent Auto 0.3 % (0.2-1.2); Eosinophils Absolute Auto 0.1 K/mm3 (0-0.3); Eosinophils Percent Auto 1.1 % (0-4.4); Hematocrit 37.3 % (37.0-47.0); Hemoglobin 12.8 g/dL (12.0-15.0); Immature Granulocyte Absolute 0.02 K/mm3 (0.00-0.031); Immature Granulocyte Percent A 0.3 % (0-0.5); Lymphocytes Absolute Auto 1.99 K/mm3 (0.9-3.2); Lymphocytes Percent Auto 32.5 % (18.3-44.2); Mean Corpuscular HGB Conc 34.3 g/dl (32-36); Mean Corpuscular Hemoglobin 29.4 pg (26-34); Mean Corpuscular Volume 85.6 fl (80-100); Mean Platelet Volume 10.8 fl (7.4-10.4); Monocytes Absolute Auto 0.3 K/mm3 (0.1-0.6); Monocytes Percent Auto 5.1 % (2.6-8.5); Neutrophils Absolute Auto 3.7 K/mm3 (1.3-6.7); Neutrophils Percent Auto 60.7 % (45.5-73.1); Platelet Count Result 153 k/mm3 (150-375); Red Blood Count 4.36 M/mm3 (4.2-5.4); Red Cell Distribution Width 12.7 % (11.5-14.5); White Blood Count 6.1 K/mm3 (4.5-10.0)
[2024-04-26 17:50] LABS: Anion Gap 12 mmol/L (4-12); Blood Urea Nitrogen 15 mg/dL (7-17); Calcium 9.1 mg/dL (8.4-10.2); Carbon Dioxide 25 mmol/L (22-30); Chloride 99 mmol/L (98-107); Estimated CRCL calculation 99 ml/min; Estimated Glomerular Filt Rate > 60; Glucose 221 mg/dL (65-110); Magnesium 1.4 mg/dL (1.6-2.3); Potassium 3.6 mmol/L (3.4-5.0); Sodium 136 mmol/L (137-145)
[2024-04-26] MEDS: diazePAM INJ (*CRX) 10 MG/2 ML SYRINGE 2.5 MG IM (17:54)
[2024-04-26 18:17] LABS: Add Urine Microscopic? YES; Appearance Urine Clear (Clear); Bacteria Urine None Seen /hpf; Bilirubin Urine Negative (Negative); Blood Urine Negative (Negative); Color Urine Yellow (Yellow); Glucose Urine UA 2+ mg/dL (Negative); Ketones Urine Negative (Negative); Leukocyte Esterase Ur 1+ LEU/UL (Negative); Need Manual Microscopic Reviewed; Nitrate Urine Negative (Negative); Non Pathogenic Casts 0-2; Protein Urine Negative (Negative); RBC Urine 0-2 /hpf (0-2); Specific Grav Ur 1.017 (1.001-1.035); Squamous Epithelial Cell Urine None Seen /hpf (Few); Urobilinogen Urine 0.2 mg/dL (<2.0); WBC Urine 0-5 /hpf (0-3); pH Urine 5.5 (5.0-9.0)
[2024-04-26] MEDS: MAGNESIUM OXIDE 400 MG TABLET PO (18:31)
[2024-04-26] MEDS: levETIRAcetam 500 MG TABLET PO (18:31)
[2024-04-26 18:32] VITALS: BP 117/67; PULSE 89; RESP 18; O2SAT 97
[2024-04-26] MEDS: AMOXICILLIN/CLAVULANATE K 875-125 MG TAB 1 TABLET PO (18:53)
[2024-04-26 19:00] VITALS: BP 120/70; PULSE 82; RESP 18; O2SAT 98
== END 2024-04-26 19:02 | disposition home or self-care (01) ==
PROVIDERS: Emergency Provider Student in an Organized Health Care Education/Training Program; PCP Internal Medicine Gastroenterology
DX: G40.909 Epilepsy, unspecified, not intractable, without status epilepticus (principal); R79.89 Other specified abnormal findings of blood chemistry; E83.42 Hypomagnesemia; E11.65 Type 2 diabetes mellitus with hyperglycemia; S51.852A Open bite of left forearm, initial encounter; W54.0XXA Bitten by dog, initial encounter; J45.909 Unspecified asthma, uncomplicated; E78.00 Pure hypercholesterolemia, unspecified; F41.9 Anxiety disorder, unspecified; F43.10 Post-traumatic stress disorder, unspecified; Z79.51 Long term (current) use of inhaled steroids; Z79.84 Long term (current) use of oral hypoglycemic drugs; Z79.4 Long term (current) use of insulin; Z23 Encounter for immunization
CPT/HCPCS: 36415; 73090; 80048; 81001; 82948; 83735; 85025; 85055; 87086; 90471; 90715; 93005; 96372; 99283; A9270; J3360; J7030

== ENCOUNTER 2025-06-13 12:07 | Emergency (ER) | payer OTHER, SELFPAY ==
[2025-06-13 12:07] VITALS: BP 159/90; PULSE 99; RESP 20; TEMP 36.7; O2SAT 100
--- NOTE | 2025-06-13 12:22 | ED.ANIMALBIT ---
HPI - Animal Bite General Chief Complaint: Animal Bite Stated Complaint: dog bite Time Seen by Provider: 06/13/25 12:14 Source: patient Mode of arrival: EMS Limitations: no limitations History of Present Illness HPI narrative: 55-year-old with a history of seizure disorder on Keppra was brought in from urgent care with a complains of dog bite to her left hand. Patient initially went for dog bite while she was in the urgent care had 3 seizures. She states that seizures are all different. She presently denies having any headache or chest pain. No history of fever or chills. Her dog is immunized. complaint: animal bite Onset (ago): hour(s) (1) Animal: dog Description of animal: household pet and immunizations UTD Mechanism: bite Location - Extremities: Bilateral: hand Pain description: constant Context: unprovoked Associated symptoms: none Treatments prior to arrival: wound dressing(s) Related Data Patient tetanus UTD: Yes Home Medications ?Medication ?Instructions ?Recorded ?Confirmed ?Last Taken ?Type sertraline 100 mg tablet 100 mg PO DAILY 09/08/19 04/26/24 05/22/22 09:00 History albuterol sulfate 2.5 mg/3 mL 2.5 mg continuous nebulization TID 05/15/22 04/26/24 Unknown History (0.083 %) solution for nebulization PRN Shortness Of Breath Or Wheezing albuterol sulfate 90 mcg/actuation 90 mcg inhalation TID PRN 05/15/22 04/26/24 Unknown History aerosol inhaler Shortness Of Breath Or Wheezing ergocalciferol (vitamin D2) 1,250 1,250 mcg PO WEEKLY 05/15/22 04/26/24 05/16/22 09:00 History mcg (50,000 unit) capsule fenofibrate micronized 134 mg 134 mg PO DAILY 05/15/22 04/26/24 05/22/22 09:00 History capsule fluticasone propionate 50 50 mcg intranasal DAILY PRN 05/15/22 04/26/24 Unknown History mcg/actuation nasal Congestion spray,suspension metformin 500 mg tablet 1,000 mg PO BIDAC 05/15/22 04/26/24 05/22/22 09:00 History diazepam 10 mg tablet 10 mg PO BID PRN Seizures 11/12/22 04/26/24 Unknown History levetiracetam 750 mg tablet 500 mg PO Q12HR 04/26/24 04/26/24 Unknown History Allergies Allergy/AdvReac Type Severity Reaction Status Date / Time No Known Allergies Allergy Verified 06/13/25 12:14 Review of Systems Review of Systems: All systems reviewed & are unremarkable except as noted in HPI and below ROS unobtainable: Yes unobtainable due to endotracheal tube Constitutional: Constitutional: Reports no additional constitutional complaints Eyes: Eyes: Reports no additional eye complaints Cardiovascular: Cardiovascular: Reports no additional cardiovascular complaints Respiratory: Respiratory: Reports as per HPI Gastrointestinal: Gastrointestinal: Reports no additional gastrointestinal complaints Musculoskeletal: Musculoskeletal: Reports as per HPI Neurologic: Reports as per HPI PMFSH Past Medical History Medical History Epilepsy Post traumatic stress disorder Type 2 diabetes mellitus Agoraphobia Insulin dependent diabetes mellitus Panic attack Anxiety High cholesterol Hepatic steatosis Pneumonia Asthma Surgical History Surgical History History of esophagogastroduodenoscopy (EGD) History of colonoscopy History of x3 H/O lumpectomy x8, benign H/O hernia repair H/O cardiac catheterization no CAD History of facial surgery Multiple surgical debridements of MRSA infection of chin Family History Family History Unknown No problems noted. Social History Social History Social History: Surrogate medical decision maker: Tadeo Garrett, spouse. Code status: Full code. Smoking status: Former smoker Second hand tobacco smoke exposure: Yes Additional smoking assessment comments: I used to smoke as a teenager. About 1-2 cigarettes on the weeekends. Alcohol intake: never Substance use: never Lack of Transportation: YES Lack of Food: Sometimes True Current Housing: I Have Housing Concerned About Future Housing: YES Difficulty Paying Gas/Electric Bills: YES Difficulty Paying for Meds: No Currently Unemployed: No Education: Grade School Difficulty w/ Childcare or Family Care: No Additional living arrangements comments: Lives with spouse in [place]. 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 Spiritual care concerns: Yes ([employer]) Exam Narrative: GENERAL: Well-appearing, well-nourished, and in no acute distress. HEAD: Normocephalic, atraumatic. EYES: PERRLA and EOMI. ENT: Nares clear, no rhinorrhea or epistaxis. Mucous membranes moist. NECK: Supple. CHEST: Clear to auscultation. No respiratory distress. HEART: Regular rate and rhythm. No murmur heard. Normal peripheral pulses. ABDOMEN: Soft, nontender, nondistended, normal active bowel sounds. EXTREMITIES: Normal range of motion. No edema. has a small laceration in between 4 and 5 th finger in web space and a small puncture wound below the lac SKIN: Warm, dry, no rash. NEURO: No focal deficits. Alert and oriented x3. PSYCH: Normal mood and affect. Course Course Emergency Course: informed her wound care take antibiotic as prescribed.continue home meds. Vital Signs Vital signs: Vital Signs Temperature 36.7 C 06/13/25 12:07 Pulse Rate 99 06/13/25 12:07 Respiratory Rate 20 06/13/25 12:07 Blood Pressure 159/90 H 06/13/25 12:07 Pulse Oximetry 100 06/13/25 12:07 Oxygen Delivery Room Air 06/13/25 12:07 Temperature 36.7 C 06/13/25 12:07 Pulse Rate 99 06/13/25 12:07 Respiratory Rate 20 06/13/25 12:07 Blood Pressure 159/90 H 06/13/25 12:07 Pulse Oximetry 100 06/13/25 12:07 Oxygen Delivery Room Air 06/13/25 12:07 Discharge Plan Discharge Clinical Impression: Dog bite of left hand Patient Disposition: Home Condition: Stable Instructions: Antibiotic Form, Animal Bite (ED) Patient Language: Qatari Prescriptions: New amoxicillin-pot clavulanate 875-125 mg tablet 1 tablet PO Q12H Qty: 14 0RF No Action metformin 500 mg tablet 1,000 mg PO BIDAC fenofibrate micronized 134 mg capsule 134 mg PO DAILY ergocalciferol (vitamin D2) 1,250 mcg (50,000 unit) capsule 1,250 mcg PO WEEKLY Rx Instructions: weekly on sundays albuterol sulfate 90 mcg/actuation HFA aerosol inhaler 90 mcg INHALATION TID PRN (Reason: Shortness Of Breath Or Wheezing) albuterol sulfate 2.5 mg /3 mL (0.083 %) solution for nebulization 2.5 mg continuous nebulization TID PRN (Reason: Shortness Of Breath Or Wheezing) fluticasone propionate 50 mcg/actuation spray,suspension 50 mcg INTRANASAL DAILY PRN (Reason: Congestion) benzonatate 200 mg capsule 200 mg PO TID PRN (Reason: cough) Qty: 20 0RF levetiracetam 750 mg tablet 500 mg PO Q12HR amoxicillin-pot clavulanate 875-125 mg tablet 1 tablet PO Q12H Qty: 20 0RF diazepam 10 mg tablet 10 mg PO BID PRN (Reason: Seizures) sertraline 100 mg tablet 100 mg PO DAILY Levemir FlexTouch U100 Insulin 100 unit/mL (3 mL) insulin pen See Rx Instructions .ROUTE .COMPLEX Qty: 3 0RF Rx Instructions: RX 17 units am subcutaneous Follow-up/Referrals: Tesfaye,Miranda Hung MD [Primary Care Provider] Time of Disposition: 12:24
[2025-06-13] MEDS: ACETAMINOPHEN 325 MG TABLET 650 MG PO (12:38)
[2025-06-13] MEDS: IBUPROFEN 400 MG TABLET PO (12:38)
[2025-06-13 12:42] VITALS: BP 143/88; PULSE 87; RESP 19; O2SAT 100
--- OUTSIDE RECORDS SUMMARY | 2025-06-13 13:21 | XMS_ITS | Clinical Summary ---
Author Organization [facility] Address [address] [place] [address] Care Team Providers Care Whittling Room Operator Name Role Phone Miranda Carlin MD Unavailable [phone] Miranda Carlin MD Primary Care Provider Allergies No known active allergies Medications ondansetron ODT (ZOFRAN-ODT) 4 mg disintegrating tablet Dissolve 1 tablet oral every 4 hours as needed for nausea or vomiting. 15 tablet 9 Active acetaminophen (TYLENOL) 500 mg tabletIndications:P ain Take 1-2 tablets (500-1,000 mg total) by mouth every 6 (six) hours as needed for pain (1 tablet for mild to moderate pain. 2 tablets for severe pain) 30 tablet 9 Active ergocalciferol (VITAMIN D) 50,000 unit capsule Take 1 capsule (50,000 Units total) by mouth once a week 4 Active fenofibrate (TRIGLIDE) 160 mg tablet Take 1 tablet (160 mg total) by mouth daily 4 Active hydrOXYzine (VISTARIL) 25 mg capsule Take 1 capsule (25 mg total) by mouth 3 (three) times a day as needed for anxiety 4 Active Levemir FlexPen 100 unit/mL (3 mL) pen for injection Inject 15 Units under the skin every morning 4 Active levETIRAcetam (KEPPRA) 500 mg tablet Take 1 tablet (500 mg total) by mouth 2 (two) times a day 4 Active metFORMIN (GLUCOPHAGE) 500 mg tablet Take 2 tablets (1,000 mg total) by mouth 2 (two) times a day with meals 4 Active sertraline (ZOLOFT) 100 mg tablet Take 1 tablet (100 mg total) by mouth daily Active diazePAM (VALIUM) 2 mg tablet Take 1 tablet (2 mg total) by mouth every 12 (twelve) hours as needed for anxiety 10 tablet 4 Active sertraline (ZOLOFT) 50 mg tablet Take 2 tablets (100 mg total) by mouth daily for 20 days 40 tablet 5 Active Active Problems Problem Noted Date Diagnosed Date Asthma 10/12/2017 Other chest pain 10/12/2017 Depression 10/12/2017 Generalized anxiety disorder 10/12/2017 Mixed hyperlipidemia 10/12/2017 Overweight 10/12/2017 Type 2 diabetes mellitus without complications 0 10/12/2017 Mass of breast 01/26/2013 Encounters Date Type Department Care Team Description 04/26/2025 11:50 AM CDT - 04/26/2025 2:25 PM CDT Emergency [facility] Emergency Department [address] [place] [phone] Javier Juares MD Wound check, abscess (Primary Dx); History of MRSA infection; Type 2 diabetes mellitus with hyperglycemia, without long-term current use of insulin (HCC); Anxiety Discharge Disposition: Discharge to home or self care 04/26/2025 Telephone [facility] Emergency Department [address] [place] [phone] Harpreet Vazquez RN 04/22/2025 Results Follow-Up [facility] Emergency Department [address] [place] [phone] Harpreet Vazquez RN POCT glucose, Aerobic and anaerobic culture and gram stain Abscess Thigh, right 04/21/2025 2:47 AM CDT - 04/21/2025 7:57 AM CDT Emergency [facility] Emergency Department [address] [place] [phone] Cellulitis of right lower extremity (Primary Dx); Abscess; Elevated blood sugar level Discharge Disposition: Discharge to home or self care from Last 3 Months Immunizations Immunization Administration Dates Next Due Influenza, Quadrivalent, Rec ombinant, Egg Free, Preservative Free, Intramuscular 08/20/2021 Influenza, Quadrivalent, Spl it, Intramuscular 08/08/2020,05/24/2017,06/15/2016,08/05 Influenza, Quadrivalent, Spl it, Preservative Free, Intramuscular 07/24/2020,07/10/2018 Influenza, Trivalent, IM (MDV) 05/29/2024 Influenza, Unspecified 10/11/2014 Pneumococcal Polysaccharide PPV23 10/11/2014 Tdap 04/26/2024 Medical History Medical History Date Comments Diabetes mellitus Seizures (HCC) Social History Tobacco Use Types Packs/Day Years Used Date Smoking Tobacco: Former Tobacco Cessation:Counseling Given: Not Answered Personal Safety Answer Date Recorded Have you ever been in or are you currently in a harmful physical or emotional relationship or is someone making you feel afraid or unsafe? 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 Gender Identity Not on file Sexual Orientation Not on file Obstetrics History Last Filed Vital Signs Vital Sign Reading Time Taken Comments Blood Pressure 125/71 04/26/2025 1:00 PM CDT Pulse 91 04/26/2025 1:00 PM CDT Temperature 36.6 C (97.8 F) 04/26/2025 11:03 AM CDT Respiratory Rate 18 04/26/2025 11:03 AM CDT Oxygen Saturation 96% 04/26/2025 1:00 PM CDT Inhaled Oxygen Concentration - - Weight 79.4 kg (175 lb 0.7 oz) 04/21/2025 3:36 A M CDT Height 157.5 cm (5' 2) 11/02/2024 1:20 PM CDT Body Mass Index 32.02 11/02/2024 1:20 PM CDT Plan of Treatment Health Maintenance Due Date Last Done Comments Albumin Creatinine Ratio, Urine 1969 Cervical Cancer Screening 1969 Colon Cancer Screening-Colonoscopy 1969 Depression Screening 1969 Hepatitis C Screening 1969 Dilated Eye Exam 1969 Foot Exam 1969 Hepatitis B Screening 1987 Regular Well Visit/Exam 18-64 1987 Pneumococcal vaccine <65 (2 of 2 - PCV) 10/11/2015 10/11/2014 Breast Cancer Screening-Mammogram 08/19/2017 016 Hemoglobin A1C 04/05/2018 10/06/2017 Zoster Vaccine (1 of 2) 2019 Lipid Panel 01/30/2020 01/29/2019, 11, 10/05/2014 Covid-19 Vaccine (3 - 2024-2 6 season) 2025 01/27/2021, 12/20/2020 Influenza Vaccine (#1) 2025 , 08/20/2021, 08/08/2020, Additional history exists eGFR 04/26/2026 04/26/2025, 03/24, 11/02/2024, Additional history exists DTaP/Tdap/Td Vaccine (2 - Td or Tdap) 04/26/2034 04/26/2024 Procedures Procedure Name Priority Date/Time Associated Diagnosis Comments POCT GLUCOSE DEVICE Routine 04/26/2025 1 :22 PM CDT DIFFERENTIAL AUTO STAT 04/26/2025 1:1 9 PM CDT CBC WITH AUTO DIFFERENTIAL STAT 04/26/2025 1:19 PM CDT POCUS SOFT TISSUE OF THE UPPER OR LOWER EXTREMITY 04/26/2025 1:15 PM CDT POCT GLUCOSE DEVICE Routine 04/26/2025 1 2:24 PM CDT EGFR STAT 04/26/2025 12:24 PM CDT BASIC METABOLIC PANEL STAT 04/26/2025 12:24 PM CDT POCT KETONE, BLOOD Routine 04/26/2025 11 :08 AM CDT POCT GLUCOSE DEVICE Routine 04/26/2025 1 1:06 AM CDT POCT GLUCOSE DEVICE Routine 04/21/2025 7 :46 AM CDT POCT GLUCOSE DEVICE Routine 04/21/2025 7 :01 AM CDT POCT GLUCOSE DEVICE Routine 04/21/2025 6 :37 AM CDT POCT GLUCOSE DEVICE Routine 04/21/2025 5 :36 AM CDT MT INCISION & DRAINAGE ABSCESS SIMPLE/SINGLE Routine 04/21/2025 5:28 AM CDT POCT GLUCOSE DEVICE Routine 04/21/2025 4 :04 AM CDT EGFR STAT 04/21/2025 3:21 AM CDT DIFFERENTIAL AUTO STAT 04/21/2025 3:2 1 AM CDT COMPREHENSIVE METABOLIC PANEL STAT 04/21/2025 3:21 AM CDT CBC WITH AUTO DIFFERENTIAL STAT 04/21/2025 3:21 AM CDT AEROBIC AND ANAEROBIC CULTURE AND GRAM STAIN STAT 04/21/2025 3:21 AM CDT POCT KETONE, BLOOD Routine 04/20/2025 11 :15 PM CDT POCT GLUCOSE DEVICE Routine 04/20/2025 1 1:14 PM CDT TNI WITH LIPID PANEL Routine 01/29/2019 7:49 PM CDT SCREENING MAMMOGRAM W JUAREZ Routine 08/19/2016 1:37 PM 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 from Last 3 Months or Most Recently Relevant to Health Maintenance Results * (ABNORMAL) POCT glucose (04/26/2025 1:22 PM CDT) Glucose, POC 329(H) 70 - 199 mg/dL Blood 04/26/2025 1:22 PM CDT 04/26/2025 1:22 PM CDT Javier Juares MD LAB POCT ORDERABLES - DEVICE Final Result [facility] [place] [address] * Differential, auto (04/26/2025 1:19 PM CDT) Pathologist [facility] [place] Neutrophil abs 2.44 1.50 - 6.50 K/cumm Imm gran abs 0.02 0.00 - 0.10 K/cumm [facility] Lymphocyte abs 1.67 0.80 - 3.30 K/cumm [facility] Monocyte abs 0.31 0.20 - 0.80 K/cumm [facility] Eosinophil abs 0.07 0.00 - 0.50 K[facility] Basophil abs 0.03 0.00 - 0.10 K/cumm [facility] Neutrophil pct 53.8 % [facility] Comment: Interpretive Data Percent cell count reference ranges are not reported, since discordance with absolute values may lead to misinterpretation of CBC data. Current Interpretive Data was last revised on 2017. Imm gran pct 0.4 % [facility] Comment: Interpretive Data Percent cell count reference ranges are not reported, since discordance with absolute values may lead to misinterpretation of CBC data. Current Interpretive Data was last revised on 2017. Lymphocyte pct 36.8 % [facility] Comment: Interpretive Data Percent cell count reference ranges are not reported, since discordance with absolute values may lead to misinterpretation of CBC data. Current Interpretive Data was last revised on 2017. Monocyte pct 6.8 % [facility] Comment: Interpretive Data Percent cell count reference ranges are not reported, since discordance with absolute values may lead to misinterpretation of CBC data. Current Interpretive Data was last revised on 2017. Eosinophil pct 1.5 % [facility] Comment: Interpretive Data Percent cell count reference ranges are not reported, since discordance with absolute values may lead to misinterpretation of CBC data. Current Interpretive Data was last revised on 2017. Basophil pct 0.7 % [facility] Comment: Interpretive Data Percent cell count reference ranges are not reported, since discordance with absolute values may lead to misinterpretation of CBC data. Current Interpretive Data was last revised on 2017. Blood 04/26/2025 1:19 PM CDT 04/26/2025 1:44 PM CDT us Javier Juares MD LAB BLOOD ORDERABLES F inal Result Performing Organization Address City/[facility]/ZIP Co de Phone Number [facility] Department [place] [address] * (ABNORMAL) CBC with auto differential (04/26/2025 1:19 PM CDT) WBC 4.54 3.80 - 9.90 K/cumm Hgb 11.9 11.9 - 15.5 g/dL [facility] Hct 34.9(L) 35.6 - 45.5 % [facility] Plt 199 150 - 400 K/cumm [facility] MPV 10.7 9.1 - 12.3 fL [facility] RBC 4.23 3.90 - 5.20 M/cumm [facility] MCV 82.5 81.3 - 96.4 fL [facility] MCH 28.1 27.1 - 33.3 pg [facility] MCHC 34.1 32.3 - 35.7 g/dL [facility] RDW CV 13.0 11.1 - 14.9 % [facility] RDW SD 39.4 35.7 - 48.1 fL [facility] NRBC abs 0.00 0.00 - 0.01 K/cumm [facility] Blood 04/26/2025 1:19 PM CDT 04/26/2025 1:44 PM CDT Javier Juares MD LAB BLOOD ORDERABLES F inal Result [facility] [place] [address] * POCUS Soft Tissue of the Upper or Lower Extremity (04/26/2025 1:15 PM CDT) Anatomical Region Laterality Modality Other 04/26/2025 12:0 9 PM CDT Narrative 04/26/2025 3:56 PM CDT Performed by: Sd Chirinos/MSK: Exam Information: Exam type: Diagnostic Indication(s) for Exam: Pain, Swelling Location : Lower extremity Side: Right Findings: Tissue thickness: Normal Cobblestoning: Normal Subcutaneous collection: Indeterminate Other: Healing abscess status post I and D 04/21/25 Confirmatory study: Confirmatory study done? : Not applicable Electronically signed by Sd Chirinos on Saturday, April 26, 2025 at 1:25 PM I have reviewed the images & the resident's interpretation. I agree with the findings. Images on file. Electronically signed by Javier Juares on Saturday, April 26, 2025 at 3:56 PM I have reviewed the images & the resident's interpretation. I agree with the findings. Images on file. Procedure Note Javier Juares MD - 04/26/2025 Performed by: Sd Chirinos/MSK: Exam Information: Exam type: Diagnostic Indication(s) for Exam: Pain, Swelling Location : Lower extremity Side: Right Findings: Tissue thickness: Normal Cobblestoning: Normal Subcutaneous collection: Indeterminate Other: Healing abscess status post I and D 04/21/25 Confirmatory study: Confirmatory study done? : Not applicable Electronically signed by Sd Chirinos on Saturday, April 26, 2025 at1:25 PM I have reviewed the images & the resident's interpretation. I agree withthe findings. Images on file. Electronically signed by Javier Juares on Saturday, April 26, 2025 at3:56 PM I have reviewed the images & the resident's interpretation. I agree withthe findings. Images on file. us Javier Juares MD POCUS ORDERABLES Final Result * eGFR (04/26/2025 12:24 PM CDT) eGFR >90 >=60 mL/min/1. 73 m2 Comment: Interpretive Data Reference Interval Normal >/= 90 mL/min/1.73m2 Mildly decreased* 60 - 89 mL/min/1.73m2 Mildly to moderately decreased 45 - 59 mL/min/1.73m2 Moderately to severely decreased 30 - 44 mL/min/1.73m2 Severely decreased 15 - 29 mL/min/1.73m2 Kidney Failure < 15 mL/min/1.73m2 *Relative to young adult level Estimated glomerular filtration rate is determined by the 2020 CKD-EPI equation recommended by the National Kidney Foundation (A Unifying Approach to GFR Estimation: Recommendations of the NKF-ASK Task Force on Reassessing the Inclusion of Race in Diagnosing Kidney Disease, JASN 2020). The CKD-EPI equation should not be used for patients with unstable renal function and has not been validated in children and those over 70. Current interpretive data was last reviewed 2021. Blood 04/26/2025 12:2 4 PM CDT 04/26/2025 12:42 PM CDT Sd Chirinos MD LAB BLOOD ORDERABLES Fin al [facility] [place] [address] * (ABNORMAL) POCT glucose (04/26/2025 12:24 PM CDT) Glucose, POC 399(H) 70 - 199 mg/dL Blood 04/26/2025 12:2 4 PM CDT 04/26/2025 12:24 PM CDT Notinfile Unknown LAB POCT ORDERABLES - DEVICE F inal Result Performing Organization Address City/[facility]/ZIP Co de Phone Number [facility] [place] [address] * (ABNORMAL) Basic metabolic panel (04/26/2025 12:24 PM CDT) Sodium 133(L) 135 - 145 mmol/L Potassium, pl 4.8 3.3 - 4.9 mmol/L [facility] Comment: Hemolyzed; Potassium value may be falsely elevated by as much as 0.6-1.0 mmol/L. Suggest redraw and reanalysis. Reviewed Chloride 98 97 - 110 mmol/L [facility] CO2 24 22 - 32 mmol/L [facility] Anion gap 11 2 - 15 mmol/L [facility] BUN 17 6 - 25 mg/dL [facility] Creatinine 0.56(L) 0.60 - 1.10 mg/dL [facility] Glucose 418(H) 70 - 199 mg/dL [facility] Comment: Interpretive Data Fasting glucose >/= 126 mg/dl is diagnostic for diabetes. Fasting is defined as no caloric intake for at least 8 hours. Fasting glucose between 100 mg/dl to 125 mg/dl is diagnostic of prediabetes. In a patient with classic symptoms of hyperglycemia or hyperglycemic crisis, a random glucose >/= 200 mg/dl is diagnostic for diabetes. In the absence of unequivocal hyperglycemia, results should be confirmed by repeat testing. The classification and Diagnosis of Diabetes Diabetes Care 2021; 46: S19-S40. Current interpretive data was last revised 2022. Calcium 9.9 8.5 - 10.3 mg/dL [facility] Blood 04/26/2025 12:2 4 PM CDT 04/26/2025 12:42 PM CDT us Sd Chirinos MD LAB BLOOD ORDERABLES Fin al Result [facility] [place] [address] * POCT ketone, blood (04/26/2025 11:08 AM CDT) Beta-Hydroxybut yrate, POC 0.1 0.0 - 0.5 mmol/L Blood 04/26/2025 11:0 8 AM CDT 04/26/2025 11:08 AM CDT us Javier Juares MD LAB POCT ORDERABLES - DEVICE Final Result Performing Organization Address [facility] Co de Phone Number [facility] [place] [address] * (ABNORMAL) POCT glucose (04/26/2025 11:06 AM CDT) Glucose, POC 322(H) 70 - 199 mg/dL Comment: Glu2: RN/MD Notified Critical Value Noted Follow Protocol Glucose comment 1 Glu2: RN/MD Notified [facility] Glucose comment 2 Critical Value Noted [facility] Glucose comment 3 Follow Protocol [facility] Blood 04/26/2025 11:0 6 AM CDT 04/26/2025 11:06 AM CDT us Notinfile Unknown LAB POCT ORDERABLES - DEVICE F inal Result Performing Organization Address [facility] [place] [address] * (ABNORMAL) POCT glucose (04/21/2025 7:46 AM CDT) Glucose, POC 259(H) 70 - 199 mg/dL Comment:Glu2: RN/MD Notified Glucose comment 1 Glu2: RN/MD Notified [facility] Blood 04/21/2025 7:46 AM CDT 04/21/2025 7:46 AM CDT us Notinfile Unknown LAB POCT ORDERABLES - DEVICE F inal Result Performing Organization Address [facility] Co de Phone Number [facility] [place] [address] * (ABNORMAL) POCT glucose (04/21/2025 7:01 AM CDT) Glucose, POC 262(H) 70 - 199 mg/dL Blood 04/21/2025 7:01 AM CDT 04/21/2025 7:01 AM CDT us Notinfile Unknown LAB POCT ORDERABLES - DEVICE F inal Result Performing Organization Address [facility] de Phone Number [facility] [place] [address] * (ABNORMAL) POCT glucose (04/21/2025 6:37 AM CDT) Glucose, POC 282(H) 70 - 199 mg/dL Blood 04/21/2025 6:37 AM CDT 04/21/2025 6:37 AM CDT us Notinfile Unknown LAB POCT ORDERABLES - DEVICE F inal Result Performing Organization Address [facility] de Phone Number [facility] [place] [address] * (ABNORMAL) POCT glucose (04/21/2025 5:36 AM CDT) Glucose, POC 270(H) 70 - 199 mg/dL Blood 04/21/2025 5:36 AM CDT 04/21/2025 5:36 AM CDT us Notinfile Unknown LAB POCT ORDERABLES - DEVICE F inal Result Performing Organization Address [facility] de Phone Number [facility] [place] [address] * MT INCISION & DRAINAGE ABSCESS SIMPLE/SINGLE (04/21/2025 5:28 AM CDT) Narrative Beth Bowen PA - 04/21/2025 5:28 AM CDT Beth Bowen PA 04/21/2025 5:31 AM Incision and Drainage Date/Time: 04/21/2025 5:28 AM Performed by: Beth Bowen PA Authorized by: Beth Bowen PA RN Notified of Procedure: yes Informed consent: Risks, benefits, alternatives discussed Patient's stated name/ matches armband: Yes Allergies confirmed: yes Consent form signed, dated, timed; matches correct patient, intended procedure and site: No consent form due to emergent status Imaging: N/a Lab/Diag test results: Pertinent lab/diag tests reviewed and match to patient identifiers Supplies, devices and special equipment are available: yes Site/side marked: n/a Immediately prior to the procedure a time out was called: a verbal verification by the procedure participants confirmed correct patient identity, correct site/side marked and visible (if applicable); agreement on procedure to be done; and correct patient positioning Type: Abscess Location: Lower extremity Lower extremity location: R leg Skin preparation: Chloraprep Anesthesia method: Topical application and local infiltration Topical anesthetic: LET gel Local anesthetic: Lidocaine 1% WITH epi Needle aspiration: yes Needle gauge: 27G. Incision types: Stab incision Incision depth: Dermal Scalpel blade: 11 Wound management: Irrigated with saline Drainage: Bloody and purulent Drainage amount: Scant Wound treatment: Wound left open Packing materials: None Patient tolerance of procedure: Tolerated well, no immediate complications All guidewires, needles, sponges or other items are accounted for: yes Any special post procedure monitoring, testing or other considerations: n/a All specimens identified, labeled and matched to patient identification: n/a Responsible constitution party for transporting specimen(s) to lab determined: n/a us Beth TRIPATHI IN CLINIC/BEDSIDE ORDERABLES Fi nal Result * (ABNORMAL) POCT glucose (04/21/2025 4:04 AM CDT) Glucose, POC 296(H) 70 - 199 mg/dL Blood 04/21/2025 4:04 AM CDT 04/21/2025 4:04 AM CDT us Notinfile Unknown LAB POCT ORDERABLES - DEVICE F inal Result [facility] Department [place] [address] * eGFR (04/21/2025 3:21 AM CDT) Pathologist [facility] [place] eGFR >90 >=60 mL/min/1. 73 m2 Comment: Interpretive Data Reference Interval Normal >/= 90 mL/min/1.73m2 Mildly decreased* 60 - 89 mL/min/1.73m2 Mildly to moderately decreased 45 - 59 mL/min/1.73m2 Moderately to severely decreased 30 - 44 mL/min/1.73m2 Severely decreased 15 - 29 mL/min/1.73m2 Kidney Failure < 15 mL/min/1.73m2 *Relative to young adult level Estimated glomerular filtration rate is determined by the 2020 CKD-EPI equation recommended by the National Kidney Foundation (A Unifying Approach to GFR Estimation: Recommendations of the NKF-ASK Task Force on Reassessing the Inclusion of Race in Diagnosing Kidney Disease, JASN 2020). The CKD-EPI equation should not be used for patients with unstable renal function and has not been validated in children and those over 70. Current interpretive data was last reviewed 2021. Blood 04/21/2025 3:21 AM CDT 04/21/2025 3:29 AM CDT us Beth TRIPATHI LAB BLOOD ORDERABLES Final Resu lt [facility] [place] [address] * Differential, auto (04/21/2025 3:21 AM CDT) Pathologist [facility] [place] Neutrophil abs 2.76 1.50 - 6.50 K/cumm Imm gran abs 0.02 0.00 - 0.10 K/cumm [facility] Lymphocyte abs 2.04 0.80 - 3.30 K/cumm [facility] Monocyte abs 0.33 0.20 - 0.80 K/cumm [facility] Eosinophil abs 0.06 0.00 - 0.50 K/cumm [facility] Basophil abs 0.02 0.00 - 0.10 K/cumm [facility] Neutrophil pct 52.8 % [facility] Comment: Interpretive Data Percent cell count reference ranges are not reported, since discordance with absolute values may lead to misinterpretation of CBC data. Current Interpretive Data was last revised on 2017. Imm gran pct 0.4 % [facility] Comment: Interpretive Data Percent cell count reference ranges are not reported, since discordance with absolute values may lead to misinterpretation of CBC data. Current Interpretive Data was last revised on 2017. Lymphocyte pct 39.0 % [facility] Comment: Interpretive Data Percent cell count reference ranges are not reported, since discordance with absolute values may lead to misinterpretation of CBC data. Current Interpretive Data was last revised on 2017. Monocyte pct 6.3 % [facility] Comment: Interpretive Data Percent cell count reference ranges are not reported, since discordance with absolute values may lead to misinterpretation of CBC data. Current Interpretive Data was last revised on 2017. Eosinophil pct 1.1 % [facility] Comment: Interpretive Data Percent cell count reference ranges are not reported, since discordance with absolute values may lead to misinterpretation of CBC data. Current Interpretive Data was last revised on 2017. Basophil pct 0.4 % [facility] Comment: Interpretive Data Percent cell count reference ranges are not reported, since discordance with absolute values may lead to misinterpretation of CBC data. Current Interpretive Data was last revised on 2017. Blood 04/21/2025 3:21 AM CDT 04/21/2025 3:29 AM CDT us Beth TRIPATHI LAB BLOOD ORDERABLES Final Resu lt [facility] [place] [address] * (ABNORMAL) Aerobic and anaerobic culture and gram stain Abscess Thigh, right (04/21/2025 3:21 AM CDT) Direct Specimen Exam Stain: Abundant polymorphonuclear leukocytes seen. Few Gram Positive Cocci Report Final Report: Moderate Staphylococcus aureus Methicillin susceptible (MSSA) by penicillin binding protein 2a (PBP2a) testing. (.) [facility] Organism STAPHYLOCOCCUS AUREUS [facility] Abscess (Thigh, right) 04/21/2025 3:21 AM CDT 04/21/2025 5:34 AM CDT [facility]ative [facility] - 04/25/2025 2:06 PM CDT Testing performed by [facility] ([phone]) Specimens submitted from normally sterile body sites will have all bacterial morphotypes identified. Specimens that contain grossly mixed farideh and/or are from body sites that are not normally sterile will be examined for Staphylococcus aureus, Pseudomonas aeruginosa, beta-hemolytic strep, vancomycin-resistant Enterococcus, Bacteroides, Parabacteroides, Clostridium perfringens and fungus. If any of these are isolated, the organism will be reported. Current interpretive data was last revised on 2019. Organism Antibiotic Method Susceptibility Staphylococcus aureus Vancomycin INTERPRETATION Susceptible Staphylococcus aureus Trimethoprim with Sulfamethoxazole INTERPRETATION Susceptible Staphylococcus aureus Linezolid INTERPRETATION Susceptible Staphylococcus aureus Doxycycline INTERPRETATION Susceptible Staphylococcus aureus Clindamycin INTERPRETATION Susceptible Staphylococcus aureus Erythromycin INTERPRETATION Susceptible Staphylococcus aureus Oxacillin INTERPRETATION Susceptible Staphylococcus aureus Cefazolin INTERPRETATION Susceptible Staphylococcus aureus Ceftriaxone INTERPRETATION Susceptible Beth [facility] LAB MICROBIOLOGY - GENERAL ORDE MONAE Final Result [facility] Department [place] [address] * CBC with auto differential (04/21/2025 3:21 AM CDT) WBC 5.23 3.80 - 9.90 K/cumm Hgb 12.5 11.9 - 15.5 g/dL [facility] Hct 36.3 35.6 - 45.5 % [facility] Plt 179 150 - 400 K/cumm [facility] MPV 11.8 9.1 - 12.3 fL [facility] RBC 4.39 3.90 - 5.20 M/cumm [facility] MCV 82.7 81.3 - 96.4 fL [facility] MCH 28.5 27.1 - 33.3 pg [facility] MCHC 34.4 32.3 - 35.7 g/dL [facility] RDW CV 13.3 11.1 - 14.9 % [facility] RDW SD 39.9 35.7 - 48.1 fL [facility] NRBC abs 0.00 0.00 - 0.01 K/cumm [facility] Blood 04/21/2025 3:21 AM CDT 04/21/2025 3:29 AM CDT us Beth [facility] LAB BLOOD ORDERABLES Final Resu lt [facility] Department [place] [address] * (ABNORMAL) Comprehensive metabolic panel (04/21/2025 3:21 AM CDT) Sodium 134(L) 135 - 145 mmol/L Potassium, pl See Comment 3.3 - 4.9 mmol/L [facility] Comment:Credited; Hemolyzed Specimen Chloride 99 97 - 110 mmol/L [facility] CO2 24 22 - 32 mmol/L [facility] Comment:Hemolyzed; result ma y be falsely decreased Anion gap 11 2 - 15 mmol/L [facility] BUN 13 6 - 25 mg/dL [facility] Creatinine 0.56(L) 0.60 - 1.10 mg/dL [facility] Glucose 279(H) 70 - 199 mg/dL [facility] Comment: Interpretive Data Fasting glucose >/= 126 mg/dl is diagnostic for diabetes. Fasting is defined as no caloric intake for at least 8 hours. Fasting glucose between 100 mg/dl to 125 mg/dl is diagnostic of prediabetes. In a patient with classic symptoms of hyperglycemia or hyperglycemic crisis, a random glucose >/= 200 mg/dl is diagnostic for diabetes. In the absence of unequivocal hyperglycemia, results should be confirmed by repeat testing. The classification and Diagnosis of Diabetes Diabetes Care 2021; 46: S19-S40. Current interpretive data was last revised 2022. Calcium 9.7 8.5 - 10.3 mg/dL [facility] Bilirubin, total 0.5 0.1 - 1.2 mg/dL [facility] Protein, pl 8.1 6.5 - 8.5 g/dL [facility] Comment:Hemolyzed; result ma y be falsely elevated Albumin 4.4 3.5 - 5.0 g/dL [facility] Alk phos See Comment 40 - 130 Units/L [facility] Comment:Credited; Hemolyzed Specimen ALT See Comment 7 - 45 Units/L [facility] Comment:Credited; Hemolyzed Specimen AST See Comment 10 - 45 Units/L [facility] Comment:Credited; Hemolyzed Specimen Blood 04/21/2025 3:21 AM CDT 04/21/2025 3:29 AM CDT Beth TRIPATHI LAB BLOOD ORDERABLES Final Resu lt Performing Organization Address [facility] de Phone Number [facility] Department [place] [address] * POCT ketone, blood (04/20/2025 11:15 PM CDT) Beta-Hydroxybut yrate, POC 0.2 0.0 - 0.5 mmol/L Blood 04/20/2025 11:1 5 PM CDT 04/20/2025 11:15 PM CDT Result [facility] Notinfile Unknown LAB POCT ORDERABLES - DEVICE F inal Result Performing Organization Address [facility] de Phone Number [facility] Department [place] [address] * (ABNORMAL) POCT glucose (04/20/2025 11:14 PM CDT) Glucose, POC 366(H) 70 - 199 mg/dL Blood 04/20/2025 11:1 4 PM CDT 04/20/2025 11:14 PM CDT Notinfile Unknown LAB POCT ORDERABLES - DEVICE F inal Result Performing Organization Address [facility] de Phone Number [facility] Department [place] [address] * (ABNORMAL) TNI with LIPID PANEL (01/29/2019 7:49 PM CDT) Troponin I <0.300 0.000 - 0.300 ng/mL [facility] Comment: Reference using JEROD Chemiluminescence Negative: Repeat in 4-6 hours as indicated. Triglycerides 331(H) 0 - 149 mg/dL [facility] Comment: LDL(measured) to follow due to Triglycerides >250 mg/dL. National Lipid Association/NCEP Guidelines: Normal < 150 mg/dL Borderline high 150-199 mg/dL High 200-499 mg/dL Very High >=500 mg/dL Cholesterol 244(H) 0 - 199 mg/dL [facility] Comment: National Lipid Association/NCEP Guidelines: Desirable < 200 mg/dL Borderline high: 200-239 mg/dL High Risk: >=240 mg/dL HDL Cholesterol 58 mg/dL [facility] Comment: Reference Ranges: Males: >=40 mg/dL Females: >=50 mg/dL Cholesterol/HDL Ratio 4.[address] [facility] Comment: Optimal < 3.5:1 High > 5:1 01/29/2019 7:49 PM CDT 01/29/2019 8:19 PM CDT Narrative [facility] - 01/29/2019 8:59 PM CDT Comment Glucose, blood, POC Resulting Agency Comment ER us Latosha TRIPATHI LAB BLOOD ORDERABLES Chinyere l Result [facility] [address] [place], [place] [id number] [place] [address] * Screening Mammogram W Juarez (08/19/2016 1:37 PM 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) Anatomical Region Laterality Modality Breast N/A Mammography 08/19/2016 1:37 PM 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 Narrative 08/19/2016 1:49 PM 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 HEMAL JOY M.D. FINAL REPORT ACC# Date Time Exam [id number] Aug 19, 2016 13:37:00 [facility] [id number] Bilateral screen w juarez Technologist(s): Phoebe Grant; ; EXAMINATION: Mammogram Technique: Bilateral Full-Field Digital Screening Mammogram and Digital Breast Tomosynthesis were performed. Views obtained: bilateral craniocaudal and bilateral mediolateral oblique. Computer Aided Detection of the 2D images was performed with [employer] 1.3 version 9.3. Mammogram Findings: Comparison is made with prior exams dating back to 01/24/2013. There are scattered areas of fibroglandular density. There is no suspicious abnormality in either breast. IMPRESSION: Annual screening mammography is recommended. OVERALL FINAL ASSESSMENT: BI-RADS CATEGORY 1: Negative. Requested By: Dictated By: HEMAL JOY M.D. on Aug 19 2016 1:49P This document has been electronically signed by: HEMAL JOY M.D. on Aug 19 2016 1:49P [id number] Procedure Note Provider, MD Danni - 12/27/2016 HEMAL JOY M.D. FINAL REPORT ACC# Date Time Exam [id number] Aug 19, 2016 13:37:00 [facility] [id number] Bilateral screen w juarez Technologist(s): Phoebe Grant; ; EXAMINATION: Mammogram Technique: Bilateral Full-Field Digital Screening Mammogram and Digital Breast Tomosynthesis were performed. Views obtained: bilateral craniocaudaland bilateral mediolateral oblique. Computer Aided Detection of the 2Dimages was performed with [employer] 1.3 version 9.3. Mammogram Findings: Comparison is made with prior exams dating back to 01/24/2013. There are scattered areas of fibroglandular density. There is no suspicious abnormality in either breast. IMPRESSION: Annual screening mammography is recommended. OVERALL FINAL ASSESSMENT: BI-RADS CATEGORY 1: Negative. Requested By: Dictated By: HEMAL JOY M.D. on Aug 19 2016 1:49P This document has been electronically signed by: HEMAL JOY M.D. on Aug 19 2016 1:49P [id number] us Historical Provider MD [facility] Chinyere l Result from Last 3 Months or Most Recently Relevant to Health Maintenance Insurance Care Teams Whittling Room Operator Relationship Specialty Start Date End Date Miranda Carlin MD [address] [address] PCP - General Gastroenterology 04/11/24 [place] [address] [place] [id number] Referring Physician 02/24/24
--- OUTSIDE RECORDS SUMMARY | 2025-06-13 13:22 | XMS_ITS | Clinical Summary ---
Author Organization [facility] Address [address] [place] [address] Care Team Providers Care Optical Coating Technician Name Role Phone Unavailable Primary Care Provider Unavailabl e Source Comments [facility],non-owned Affiliates and Associated Physician Practices is amultiple site organization consisting of ambulatory clinics and hospital sitesin [place], [place], [place] and [place]. This disclosure is being madepursuant to the Care Everywhere program and may not contain all information available regarding this patient. Last updated 18.[employer] [facility] Allergies No known active allergies Medications * Be aware that medications may not be up to date on this document. Alwaysverify current medications with the patient. ARIPiprazole (ABILIFY) 15 MG tablet Take 15 mg by mouth once daily Active fluticasone propionate (FLONASE) 50 MCG/ACT nasal spray [place] 2 sprays into each nostril once daily Active fluticasone-dandy meterol (ADVAIR) 250-50 MCG/DOSE inhaler Inhale 1 puff by mouth 2 times daily Active albuterol (PROVENTIL;VENT ALLA) (5 MG/ML) 0.5% nebulizer solution Inhale 2.5 mg by mouth every 4 hours as needed for Shortness of Breath or Wheezing Active traZODone (DESYREL) 100 MG tablet Take 100 mg by mouth at bedtime Active clonazePAM (KLONOPIN) 0.5 MG tablet Take 0.5 mg by mouth 3 times daily as needed for Anxiety Active sertraline (ZOLOFT) 100 MG tablet Take 100 mg by mouth once daily Active buPROPion XL 24hr (WELLBUTRIN-XL) 150 MG tablet Take 150 mg by mouth once daily Active Multiple Vitamin (MULTI VITAMIN DAILY PO) Take 1 tablet by mouth Active fenofibrate (LOFIBRA) 160 MG tablet Take 160 mg by mouth once daily Take with largest meal of the day. Active aspirin (ASPIRIN) 81 MG chew tablet Take 1 tablet by mouth once daily 30 tablet 8 Active atorvastatin (LIPITOR) 40 MG tablet Take 1 tablet by mouth at bedtime 30 tablet 8 Active metFORMIN (GLUCOPHAGE) 1000 MG tablet Take 1 tablet by mouth 2 times daily with morning and evening meal 60 tablet 8 Active glipiZIDE (GLUCOTROL) 5 MG tablet Take 1 tablet by mouth once daily 30 tablet 8 Active Active Problems Problem Noted Date Diagnosed Date Chest pain in adult 10/05/2017 Social History Tobacco Use Types Packs/Day Years Used Date Smoking Tobacco: Former Cigarettes Q uit: 2006 Smokeless Tobacco: Never Alcohol Use Standard Drinks/Week Comments No 0 (1 standard drink = 0.6 oz pur e alcohol) socially Comments Unknown Sex and Gender Information Value Date Recorded Sex Assigned at Not on file Legal Sex Female 8:42 AM GAS ROLLER OPERATOR Gender Identity Not on file Sexual Orientation Not on file Last Filed Vital Signs Vital Sign Reading Time Taken Comments Blood Pressure 117/75 10/06/2017 4:35 PM GAS ROLLER OPERATOR Pulse 88 10/06/2017 4:35 PM GAS ROLLER OPERATOR Temperature 36.8 C (98.3 F) 10/06/2017 4:35 PM GAS ROLLER OPERATOR Respiratory Rate 18 10/06/2017 4:35 PM GAS ROLLER OPERATOR Oxygen Saturation 95% 10/06/2017 4:35 PM GAS ROLLER OPERATOR Inhaled Oxygen Concentration - - Weight 81.7 kg (180 lb 1.9 oz) 10/05/2017 7:49 P M GAS ROLLER OPERATOR Height 154.9 cm (5' 1) 10/06/2017 8:28 AM GAS ROLLER OPERATOR Body Mass Index 34.03 10/05/2017 7:49 PM GAS ROLLER OPERATOR Plan of Treatment Health Maintenance Due Date Last Done Comments COLOGUARD (AGES 45-75) - COL ON CA SCREENING 1969 COLON MONITORING 1969 COLONOSCOPY - COLON CA SCREENING 1969 CT COLONOGRAPHY - COLON CA SCREENING 1969 Colorectal Cancer Screening 1969 FIT - COLON CA SCREENING 1969 FLEX SIG - COLON CA SCREENING 1969 MAMMOGRAM 1969 HIV SCREENING 1984 HEPATITIS C SCREENING 05/18/1987 DTAP/TDAP/TD VACCINES (1 - Tdap) 1988 HEPATITIS B VACCINE (1 of 3 - 19+ 3-dose series) 1988 PNEUMOCOCCAL VACCINE 50+ (1 of 1 - PCV) 2019 ZOSTER VACCINE (1 of 2) 2019 DEPRESSION SCREENING 08/22/2024 COVID-19 VACCINE (1 - 2023-2 5 season) 2025 INFLUENZA VACCINE (#1) 2025 HIB VACCINE Aged Out No longer eligi ble based on patient's age to complete this topic HPV VACCINE Aged Out No longer eligi ble based on patient's age to complete this topic MENINGOCOCCAL (Group B) VACC INE SHARED DECISION-MAKING Aged Out No longer eligibl e based on patient's age to complete this topic MENINGOCOCCAL GROUPS A/C/Y/W VACCINE Aged Out No longer eligible b ased on patient's age to complete this topic Insurance [facility] Advance Directives * Full Code (Latest Code Status on File) Date Activated Date Inactivated Comments 10/06/2017 9:54 AM 10/06/2017 10:58 PM * Full Code Date Activated Date Inactivated Comments 10/05/2017 7:54 PM 10/06/2017 9:54 AM
--- OUTSIDE RECORDS SUMMARY | 2025-06-13 13:22 | XMS_ITS | Clinical Summary ---
Author Organization [facility] Address [address] [place] [id number] Care Team Providers Care Memorandum Statement Clerk Name Role Phone Miranda Carlin MD Primary Care Provider Unavail able Allergies No known active allergies Medications aspirin EC (ASPIRIN) 81 MG EC tablet Take 81 mg by mouth daily. Active trazodone 100 MG tablet Take 100 mg by mouth nightly at bedtime. Active sertraline 100 MG tablet Take 1 tablet (100 mg total) by mouth 2 (two) times a day. Active metFORMIN 500 MG tablet Take 2 tablets (1,000 mg total) by mouth 2 (two) times daily with meals. Active atorvastatin 40 MG tablet Take 40 mg by mouth nightly at bedtime. Active fluticasone propionate 50 MCG/ACT nasal spray 2 sprays by Nasal route daily. Active prochlorperazi ne 10 MG tablet Take 1 tablet (10 mg total) by mouth every 6 (six) hours as needed (nausea). 20 tablet 8 Active Additional Information Patient not taking.Reported on 05/24/2024 diazePAM (VALIUM) 2 MG tablet Take 1 tablet (2 mg total) by mouth 2 (two) times daily. Active vitamin D2, ergocalciferol , (DRISDOL) 1.25 mg capsule TAKE 1 CAPSULE BY MOUTH ONCE A WEEK WITH MEALS Active hydrOXYzine (VISTARIL) 25 MG capsule Take 1 capsule (25 mg total) by mouth 2 (two) times daily as needed. Active fenofibrate 160 MG tablet Take 1 tablet (160 mg total) by mouth every morning. FOR 14 DAYS Active albuterol (PROVENTIL) (5 MG/ML) 0.5% nebulizer solution Inhale 0.5 mLs (2.5 mg total) into the lungs every 4 (four) hours as needed. 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 (CMS/HCC HHS/HCC) Take 1 tablet by mouth twice daily 180 tablet 5 Active Active Problems Problem Noted Date Diagnosed Date Asthma 05/24/2024 Diabetes mellitus, type II 05/24/2024 Hypertriglyceridemia 05/24/2024 PTSD (post-traumatic stress disorder) 05/24/2024 Chest pain in adult 10/05/2017 Tear of meniscus of right kn ee as current injury, unspecified meniscus, unspecified tear type, initial encounter 12/24/2016 History of MRSA infection 04/01/2015 Abscess of mandible 10/02/2014 Social History Tobacco Use Types Packs/Day Years Used Date Smoking Tobacco: Former Cigarettes Q uit: 2006 Passive Smoke Exposure: Past Smokeless Tobacco: Never Tobacco Cessation:Counseling Given: Yes Alcohol Use Standard Drinks/Week Comments Never 0 (1 standard drink = 0.6 oz pur e alcohol) Comments Unknown Sex and Gender Information Value Date Recorded Sex Assigned at Not on file Legal Sex Female 7:12 PM CDT Gender Identity Not on file Sexual Orientation Not on file Last Filed Vital Signs Vital Sign Reading Time Taken Comments Blood Pressure 137/84 05/24/2024 1:05 PM CDT Pulse 100 05/24/2024 1:05 PM CDT Temperature 36.1 C (97 F) 05/24/2024 1:05 PM CDT Respiratory Rate 18 10/11/2017 3:12 PM HATCHERY MAN Oxygen Saturation 97% 05/24/2024 1:05 PM CDT Inhaled Oxygen Concentration - - Weight 78 kg (172 lb) 05/24/2024 1:05 PM CDT Height 157.5 cm (5' 2) 05/24/2024 1:05 PM CDT Body Mass Index 31.46 05/24/2024 1:05 PM CDT Plan of Treatment Health Maintenance Due Date Last Done Comments Cervical Cancer Screening Pap Smear (Age 30 to 64) Every 3 Years 1969 Colorectal Cancer Screening Colonoscopy (10 Years) 1969 Kidney Health Evaluation 1969 Hemoglobin A1C 1969 Lipid Panel 1969 Annual Physical 1972 Diabetes: Retinopathy Eye Exam 1987 Hepatitis C 1987 Hepatitis B Vaccines (1 of 3 - 19+ 3-dose series) 1988 Cervical Cancer Screening Pap with HPV Testing (Age 30 to 64) Every 5 Years 1999 Cervical Cancer Screening with HPV 1999 Pneumococcal Vaccine: 50+ Years (2 of 2 - PCV) 10/11/2015 10/11/2014 Mammogram Screening 01/19/2016 01/18/2014, 3 Zoster Vaccines (1 of 2) 2019 PHQ-2 (Physician [place]) 08/22/2024 COVID-19 Vaccine (3 - season) 2025 01/27/2021, 12/20/2020 Influenza Adult (#1) 2025 08/20/2021, 08/08/2020, 07/24/2020, Additional history exists DTaP, Tdap and Td Vaccines (2 - Td or Tdap) 04/26/2034 04/26/2024 Hepatitis A Vaccines Aged Out No long er eligible based on patient's age to complete this topic Meningococcal B Vaccine Aged Out No l onger eligible based on patient's age to complete this topic Meningococcal Vaccine Aged Out No [place] eligible based on patient's age to complete this topic RSV Immunizations Under 20 Months Aged Out No longer eligible based on patient's age to complete this topic Insurance [place] [place] [employer] Care Teams Memorandum Statement Clerk Relationship Specialty Start Date End Date Miranda Carlin MD PCP - General INTERNAL MEDICINE 05/24/24
== END 2025-06-13 12:43 | disposition home or self-care (01) ==
LOC: ANHED 12:33
PROVIDERS: Emergency Provider Family Medicine; PCP Internal Medicine Gastroenterology
DX: S61.452A Open bite of left hand, initial encounter (principal); G40.909 Epilepsy, unspecified, not intractable, without status epilepticus; E11.9 Type 2 diabetes mellitus without complications; E78.00 Pure hypercholesterolemia, unspecified; J45.909 Unspecified asthma, uncomplicated; F41.9 Anxiety disorder, unspecified; F43.10 Post-traumatic stress disorder, unspecified; Z87.01 Personal history of pneumonia (recurrent); Z87.891 Personal history of nicotine dependence; Z79.84 Long term (current) use of oral hypoglycemic drugs; Z79.899 Other long term (current) drug therapy; W54.0XXA Bitten by dog, initial encounter
CPT/HCPCS: 99283; A9270